=== PATIENT | male | born 1990 | race Caucasian/White ===

== ENCOUNTER → 2017-06-11 | Outpatient (CLI) | payer OTHER ==
[~2017-06-11] MED LIST: IMD2X PO; ONDA4TAB65 PO; PANT40TA PO; RANI150T3 PO
--- NOTE | 2017-06-11 11:27 | DIAGNOSTIC IMAGING REPORT ---
ABD/PELVIS NO IV OR ORAL CONT CT DOSE: 753.23 mGy.cm HISTORY: Flank pain. Hematuria. R30.0 Dysuria TECHNIQUE: Multiaxial CT images of the abdomen and pelvis were performed without contrast. A dose lowering technique was utilized adhering to the principles of ALARA. COMPARISON STUDY: None. FINDINGS: Liver spleen and pancreas are uniform in appearance. Kidneys negative for calcification or hydronephrosis. The adrenal glands are normal. The bowel pattern is nonobstructive. The appendix is normal. Scattered colonic diverticuli with no evidence for diverticulitis. Bladder is midline. No definite calcifications are seen. No significant abdominal pelvic or inguinal adenopathy. IMPRESSION: No significant abnormality identified within the abdomen or pelvis. The above report was generated using voice recognition software. It may contain grammatical, syntax or spelling errors. Electronically signed by: Minor Renee M.D. 06/11/2017 11:26 AM Dictated Date/Time: 06/11/2017 11:23 AM
[2017-06-11 13:12] LABS: MEAN CELL VOLUME 83.3 fL (80-100); MEAN CORPUSCULAR HEMOGLOBIN 27.9 pg (25-34); MEAN CORPUSCULAR HGB CONC 33.5 g/dl (32-36); MEAN PLATELET VOLUME 10.4 fL (7.4-10.4); PLATELET COUNT 255 K/uL (130-400); RED BLOOD COUNT 5.52 M/uL (4.7-6.1); WHITE BLOOD COUNT 7.28 K/uL (4.8-10.8)
[2017-06-11 13:17] LABS: ESTIMATED AVERAGE GLUCOSE 108 mg/dl; HA1C FLAG Normal (Normal)
[2017-06-11 14:14] LABS: ALT/SGPT 32 U/L (12-78); BLOOD UREA NITROGEN 13 mg/dl (7-18); BUN/CREATININE RATIO 12.8 (10-20); CALCIUM 9.3 mg/dl (8.5-10.1); CARBON DIOXIDE 28 mmol/L (21-32); CHLORIDE 100 mmol/L (98-107); CHOLESTEROL 169 mg/dl (0-200); GLUCOSE 92 mg/dl (70-99); POTASSIUM 3.9 mmol/L (3.5-5.1); SODIUM 137 mmol/L (136-145); TRIGLYCERIDES 292 mg/dl (0-150); VERY LOW DENSITY LIPOPROT CALC 58 mg/dl
[2017-06-11 14:17] LABS: ALB/GLOB RATIO 0.9 (0.9-2); ALKALINE PHOSPHATASE 91 U/L (45-117); AST/SGOT 25 U/L (15-37); CHOLESTEROL/HDL RATIO 4.4; HDL CHOLESTEROL 38 mg/dl; LDL CHOLESTEROL CALCULATED 73 mg/dl
== END | disposition home or self-care (01) ==
LOC: C.CTS 11:08
PROVIDERS: ATTEND Nurse Practitioner Family
DX: Z00.00 Encounter for general adult medical examination without abnormal findings (principal); R30.0 Dysuria

== ENCOUNTER → 2017-06-11 | Outpatient (CLI) | payer OTHER | END | disposition home or self-care (01) | LOC: C.PATHSPEC 17:01 | PROVIDERS: ATTEND Nurse Practitioner Family | DX: R31.29 Other microscopic hematuria (principal) ==

== ENCOUNTER 2017-06-22 07:58 | Inpatient (IN) | payer OTHER ==
[~2017-06-22] VITALS: Ht 175.3 cm; Wt 97.5 kg
[2017-06-22] MEDS ORDERED: SODIUM CHLORIDE 0.9% 1000ML 1,000 ML IV STA (08:08)
[2017-06-22] MEDS ORDERED: SODIUM CHLORIDE 0.9% 1000ML 2,000 ML IV STA (08:08)
[2017-06-22] MEDS ORDERED: OPTIRAY 320 IV PRN (08:30)
[2017-06-22 08:53] LABS: BASO ABS # 0.08 K/uL (0-0.2); COMPLETE YES; EOS % 5.6 %; HEMATOCRIT 47.5 % (42-52); IG% 1.5 %; LYMPH % 17.4 %; LYMPH ABS # 1.38 K/uL (1.2-3.4); MEAN CELL VOLUME 79.4 fL (80-100); MEAN CORPUSCULAR HEMOGLOBIN 29.1 pg (25-34); MEAN CORPUSCULAR HGB CONC 36.6 g/dl (32-36); MEAN PLATELET VOLUME 9.9 fL (7.4-10.4); MONO % 17.8 %; NEUT % 56.7 %; PLATELET COUNT 375 K/uL (130-400); RED BLOOD COUNT 5.98 M/uL (4.7-6.1); WHITE BLOOD COUNT 7.91 K/uL (4.8-10.8)
[2017-06-22 09:11] LABS: BUN/CREATININE RATIO 14.2 (10-20); CALCIUM 9.2 mg/dl (8.5-10.1); CREATININE 1.8 mg/dl (0.60-1.40); POTASSIUM 3.1 mmol/L (3.5-5.1)
[2017-06-22 09:14] LABS: ALB/GLOB RATIO 0.8 (0.9-2)
[2017-06-22] MEDS ORDERED: POTASSIUM CHLR 20 MEQ / WTR 20 MEQ in PREMIXED WATER 100 ML IV STA (09:20)
[2017-06-22] MEDS ORDERED: POTASSIUM CHLORIDE 10 MEQ / 100ML WTR IV ONE (09:32)
[2017-06-22 09:37] LABS: URINE APPEARANCE CLOUDY (CLEAR); URINE COLOR ORANGE; URINE EPITHELIAL CELL AUTO >30 /lpf (0-5); URINE NITRITE POS (NEG); URINE SPECIFIC GRAVITY 1.036 (1.000-1.030); UROBILINOGEN NEG (NEG)
[2017-06-22 09:49] LABS: MANUAL MICROSCOPIC REQUIRED? NO; REVIEW REQ? YES; SULFASALICYLIC ACID POS (NEG); URINE BILIRUBIN 3+ (NEG)
--- NOTE | 2017-06-22 10:33 | DIAGNOSTIC IMAGING REPORT ---
CT SCAN OF THE ABDOMEN AND PELVIS WITHOUT CONTRAST CLINICAL HISTORY: Abdominal pain, nausea, vomiting, diarrhea. COMPARISON STUDY: 06/11/2017 TECHNIQUE: CT scan of the abdomen and pelvis was performed from the lung bases to the proximal femurs. Images are reviewed in the axial, sagittal, and coronal planes. IV contrast was not administered for this examination. A dose lowering technique was utilized adhering to the principles of ALARA. CT DOSE: 936.77 mGycm FINDINGS: Lower chest: The heart is normal in size and configuration, without pericardial effusion. The lung bases and pleural spaces are clear. Liver: The unenhanced liver is normal in size, contour, and attenuation. There is no intrahepatic biliary ductal dilatation. Gallbladder: Slightly hyperdense bile. No calculi are visualized Spleen: Normal in size and attenuation. Pancreas: Unremarkable. Adrenal glands: Unremarkable. Kidneys: No renal, ureteral, or bladder calculi are visualized. Bowel: There are no transition zones indicate bowel obstruction. There is no acute diverticulitis. The appendix appears normal. Peritoneum: There is no intraperitoneal free air or abdominal ascites. Vasculature: The abdominal aorta is normal in course and caliber. There is minimal infiltration of the fat adjacent the celiac origin. This finding is of questioned significance and remains similar to the prior study Adenopathy: There are mildly enlarged mesenteric lymph nodes, likely reactive. Pelvic viscera: The bladder, and pelvic viscera are unremarkable. Skeletal structures: No destructive osseous lesions are seen. IMPRESSION: 1. No renal, ureteral, or bladder calculi identified 2. No evidence of bowel obstruction. No evidence of free air 3. Normal appendix. No evidence of acute diverticulitis 4. Mild mesenteric lymphadenopathy, likely reactive. A 6 month follow-up study would seem prudent 5. Subtle nonspecific infiltration of the fat adjacent to the celiac origin. Electronically signed by: Carlos Martínez M.D. 06/22/2017 10:32 AM Dictated Date/Time: 06/22/2017 10:26 AM
--- NOTE | 2017-06-22 11:12 | EMERGENCY ROOM VISIT NOTE ---
History First contact with patient: 08:03 Chief Complaint: ABDOMINAL PAIN Stated Complaint: FLU LIKE SYMPTOMS,EXTREME STOMACH PAIN Nursing Triage Summary: N/v/d with abd pain, states started last Thursday, pain has been off and on. Seen at [facility] - told it was food poisoning. History of Present Illness Patient is a healthy 26-year-old white male who presents emergency department for evaluation of nausea, vomiting and diarrhea times almost 10 days. He states that his symptoms started after he ate at a fast food restaurant on . He developed nausea, with multiple episodes of vomiting and diarrhea. He was seen at [facility] on 06/14. He received IV fluids and nausea medications. There was no imaging performed. He was prescribed Cipro, which he only took for about 3 days then stopped. He states that midweek he felt like he was getting a little bit better, then these symptoms rebounded. He has been forcing fluids, but reports mid abdominal pain, particularly after he tries to eat. He vomits after eating, and has had liquid diarrhea. He reports roughly 9-10 bowel movements per day. He reports feeling hot and sweaty, but has not had a fever. He tried taking Imodium without relief. Notes 4/10 crampy , intermittent mid abdominal pain. His 7-month-old daughter was also sick with similar symptoms, but she is improved. He denies any prior history of stomach problems or GI issues. He works on a farm. He has not traveled outside the country recently. Review of Systems Review of systems as per HPI. All other systems reviewed were negative. 10 systems reviewed. Past Medical/Surgical History Medical Problems: (1) ROXANNE (acute kidney injury) (2) Hematuria (3) Hypokalemia (4) Proteinuria Electronic medical records are reviewed and summarized as above/below. See Problem List. Social History Smoking Status: Former Smoker Marital Status: Housing Status: lives with family Occupation Status: employed Current/Historical Medications No Active Prescriptions or Reported Meds Physical Exam Vital Signs Date Time Temp Pulse Resp B/P (MAP) Pulse Ox O2 Delivery O2 Flow Rate FiO2 06/22/17 11:48 77 20 121/70 99 Room Air 06/22/17 11:28 99 Room Air 06/22/17 09:55 82 20 110/66 98 Room Air 06/22/17 07:59 36.4 92 16 117/85 95 Room Air Physical Exam CONSTITUTIONAL: Patient is an ill although nontoxic appearing 26-year-old white male who is awake and alert and in mild distress due to his stated complaint. EYES: Pupils equal, round, reactive to light and accommodation. EOMs intact without nystagmus. Sclera are anicteric. ENT: Tympanic membranes intact, with normal landmarks. External canals are clear. Oral and nasopharynx are clear. Mucous membranes are dry, no lesions, tongue and gums appear normal. NECK: No bruits auscultated. Supple without lymphadenopathy. No thyromegaly. No meningeal signs. Full active range of motion without discomfort. CARDIOVASCULAR: Regular rate and rhythm, with normal S1 and S2, no murmur or gallop or rub is heard. No carotid bruits auscultated. No JVD. Peripheral pulses easily palpable. RESPIRATORY: Breath sounds equal and clear to auscultation without wheezes, rales, or rhonchi heard. Full and equal chest expansion without accessory muscle use or retractions. ABDOMEN: Bowel sounds are present. Abdomen is soft, nondistended, mildly tender to palpation in the epigastric and the left upper quadrant without guarding, rebound or rigidity. INTEGUMENTARY: No lesions or rash, normal skin turgor. LYMPH: No lymphadenopathy. Medical Decision & Procedures ER Provider Diagnostic Interpretation: CT SCAN OF THE ABDOMEN AND PELVIS WITHOUT CONTRAST CLINICAL HISTORY: Abdominal pain, nausea, vomiting, diarrhea. COMPARISON STUDY: 06/11/2017 TECHNIQUE: CT scan of the abdomen and pelvis was performed from the lung bases to the proximal femurs. Images are reviewed in the axial, sagittal, and coronal planes. IV contrast was not administered for this examination. A dose lowering technique was utilized adhering to the principles of ALARA. CT DOSE: 936.77 mGycm FINDINGS: Lower chest: The heart is normal in size and configuration, without pericardial effusion. The lung bases and pleural spaces are clear. Liver: The unenhanced liver is normal in size, contour, and attenuation. There is no intrahepatic biliary ductal dilatation. Gallbladder: Slightly hyperdense bile. No calculi are visualized Spleen: Normal in size and attenuation. Pancreas: Unremarkable. Adrenal glands: Unremarkable. Kidneys: No renal, ureteral, or bladder calculi are visualized. Bowel: There are no transition zones indicate bowel obstruction. There is no acute diverticulitis. The appendix appears normal. Peritoneum: There is no intraperitoneal free air or abdominal ascites. Vasculature: The abdominal aorta is normal in course and caliber. There is minimal infiltration of the fat adjacent the celiac origin. This finding is of questioned significance and remains similar to the prior study Adenopathy: There are mildly enlarged mesenteric lymph nodes, likely reactive. Pelvic viscera: The bladder, and pelvic viscera are unremarkable. Skeletal structures: No destructive osseous lesions are seen. IMPRESSION: 1. No renal, ureteral, or bladder calculi identified 2. No evidence of bowel obstruction. No evidence of free air 3. Normal appendix. No evidence of acute diverticulitis 4. Mild mesenteric lymphadenopathy, likely reactive. A 6 month follow-up study would seem prudent 5. Subtle nonspecific infiltration of the fat adjacent to the celiac origin. Laboratory Results 06/22/17 08:30 Red Blood Count 5.98, Mean Corpuscular Volume 79.4, Mean Corpuscular Hemoglobin 29.1, Mean Corpuscular Hemoglobin Concent 36.6, Mean Platelet Volume 9.9, Neutrophils (%) (Auto) 56.7, Lymphocytes (%) (Auto) 17.4, Monocytes (%) (Auto) 17.8, Eosinophils (%) (Auto) 5.6, Basophils (%) (Auto) 1.0, Neutrophils # (Auto ) 4.48, Lymphocytes # (Auto) 1.38, Monocytes # (Auto) 1.41, Eosinophils # (Auto ) 0.44, Basophils # (Auto) 0.08 06/22/17 08:30 Test 06/22/17 08:30 06/22/17 08:44 06/22/17 12:20 White Blood Count 7.91 K/uL (4.8-10.8) Red Blood Count 5.98 M/uL (4.7-6.1) Hemoglobin 17.4 g/dL (14.0-18.0) Hematocrit 47.5 % (42-52) Mean Corpuscular Volume 79.4 fL (80-100) Mean Corpuscular Hemoglobin 29.1 pg (25-34) Mean Corpuscular Hemoglobin Concent 36.6 g/dl (32-36) Platelet Count 375 K/uL (130-400) Mean Platelet Volume 9.9 fL (7.4-10.4) Neutrophils (%) (Auto) 56.7 % Lymphocytes (%) (Auto) 17.4 % Monocytes (%) (Auto) 17.8 % Eosinophils (%) (Auto) 5.6 % Basophils (%) (Auto) 1.0 % Neutrophils # (Auto) 4.48 K/uL (1.4-6.5) Lymphocytes # (Auto) 1.38 K/uL (1.2-3.4) Monocytes # (Auto) 1.41 K/uL (0.11-0.59) Eosinophils # (Auto) 0.44 K/uL (0-0.5) Basophils # (Auto) 0.08 K/uL (0-0.2) RDW Standard Deviation 38.2 fL (36.4-46.3) RDW Coefficient of Variation 13.3 % (11.5-14.5) Immature Granulocyte % (Auto) 1.5 % Immature Granulocyte # (Auto) 0.12 K/uL (0.00-0.02) Prothrombin Time 12.0 SECONDS (9.0-12.0) Prothromb Time International Ratio 1.1 (0.9-1.1) Activated Partial Thromboplast Time 28.9 SECONDS (21.0-31.0) Partial Thromboplastin Ratio 1.1 Anion Gap 9.0 mmol/L (3-11) Est Creatinine Clear Calc Drug Dose 71.0 ml/min Estimated GFR () 58.9 Estimated GFR (Non- 50.8 BUN/Creatinine Ratio 14.2 (10-20) Calcium Level 9.2 mg/dl (8.5-10.1) Magnesium Level 2.2 mg/dl (1.8-2.4) Total Bilirubin 3.7 mg/dl (0.2-1) Direct Bilirubin 2.4 mg/dl (0-0.2) Aspartate Amino Transf (AST/SGOT) 244 U/L (15-37) Alanine Aminotransferase (ALT/SGPT) 260 U/L (12-78) Alkaline Phosphatase 132 U/L (45-117) Total Creatine Kinase 279 U/L (39-308) Total Protein 7.9 gm/dl (6.4-8.2) Albumin 3.6 gm/dl (3.4-5.0) Globulin 4.3 gm/dl (2.5-4.0) Albumin/Globulin Ratio 0.8 (0.9-2) Amylase Level 103 U/L (25-115) Lipase 742 U/L (73-393) Hepatitis B Surface Antigen NEG (NEG) Hepatitis C Antibody NEG (NEG) Urine Color ORANGE Urine Appearance CLOUDY (CLEAR) Urine pH 6.0 (4.5-7.5) Urine Specific [place] 1.036 (1.000-1.030) Urine Protein 4+ (NEG) Urine Glucose (UA) NEG (NEG) Urine Ketones NEG (NEG) Urine Occult Blood 3+ (NEG) Urine Nitrite POS (NEG) Urine Bilirubin 3+ (NEG) Urine Urobilinogen NEG (NEG) Urine Leukocyte Esterase SMALL (NEG) Urine WBC (Auto) 10-30 /hpf (0-5) Urine RBC (Auto) >30 /hpf (0-4) Urine Hyaline Casts (Auto) >30 /lpf (0-5) Urine Epithelial Cells (Auto) >30 /lpf (0-5) Urine Bacteria (Auto) 1+ (NEG) Urine Renal Epithelial Cells /lpf (0-5) Urine Pathogenic Casts See comments /lpf (0) Medications Administered Medications (Trade) Dose Ordered Sig/Smooth Route Start Time Stop Time Status Last Admin Dose Admin Sodium Chloride 1,000 ml @ 250 mls/hr Q4H STAT IV 06/22/17 08:08 06/22/17 12:07 DC 06/22/17 10:24 250 MLS/HR Sodium Chloride 2,000 ml @ 999 mls/hr Q2H1M STAT IV 06/22/17 08:08 06/22/17 10:08 DC 06/22/17 08:49 999 MLS/HR Potassium Chloride (Kcl 10 Meq / Wtr) 20 meq STK-MED ONCE IV 06/22/17 09:32 06/22/17 09:33 DC 06/22/17 10:24 20 MEQ ED Course Patient was seen and evaluated as above. His old records were reviewed. IV lock was initiated and he was hydrated aggressively with normal saline solution. He declined medication for pain or nausea while in the emergency department. CBC with differential, CMP, lipase and urinalysis were ordered. Laboratory studies noted a normal white count of 7900, H&H 17.4 and 47.5, chemistries is noted a sodium of 132, potassium 3.1, chloride 98, carbon dioxide 25, BUN 26 and creatinine 1.8. He has elevation of his total bilirubin and transaminases. Lipase is also slightly elevated. The patient was reassessed and made aware of the results of his laboratory and diagnostic imaging studies. Hepatitis panel was ordered. The patient was able to provide a stool sample which was sent for analysis. CT scan of the abdomen and pelvis without contrast was ordered, and was largely unremarkable. There is no evidence for urinary calculi, no bowel obstruction free air or acute diverticulitis. Appendix was visualized and was normal. Patient was given potassium 20 mEq IV. The patient was able to give a stool sample which was negative for C. difficile. Stool cultures are pending. All laboratory and diagnostic imaging studies were reviewed with attending physician , and discussed with the patient and his family at length. Given his transaminitis, and acute kidney injury in the setting of a vomiting and diarrheal illness for 10 days, it was felt that he would benefit from admission/ observation for further care and management. The wound and the hospitalist service was contacted, and the patient was discussed with Dr. Huizar. Differential diagnoses entertained included infectious versus inflammatory colitis/enteritis, food borne illness, bowel obstruction, perforation, abscess, dehydration, ROXANNE, electrolyte or metabolic abnormality, among others. Medical Decision See emergency Department course Medication Reconcilliation Current Medication List: was personally reviewed by in Blood Pressure Screening Patient's blood pressure: Normal blood pressure Blood pressure disposition: Did not require urgent referral Impression Primary Impression: Transaminitis Additional Impressions: Elevated bilirubin Nausea vomiting and diarrhea ROXANNE (acute kidney injury) Departure Information Dispostion Being Evaluated By Hospitalist Prescriptions No Active Prescriptions or Reported Meds Referrals Nita Santillan M.D. (PCP) Patient Instructions My [facility] Problem Qualifiers
[2017-06-22 11:28] VITALS: O2SAT 99; Ht 175.3 cm; Wt 97.5 kg
--- NOTE | 2017-06-22 12:01 | History and Physical ---
History & Physical Date & Time of Service: Jun 22, 2017 at 11:46 Chief Complaint: Flu Like Symptoms,Extreme Stomach Pain Primary Care Physician: Nita Santillan M.D. History of Present Illness Source: patient 26yo male with no significant PMH who presents with GI illness starting about 10 days ago. He states he ate at an [employer] restaurant in [place] and within hours of eating there he felt ill. Had stomach pain, bloating, and by the next morning had emesis. Diarrhea started that Thursday. He had 10-20 episodes of diarrhea each day initially, and now he is down to about 8-12 times/day. He had fevers for the first 4-5 days - subjective; never had it checked. Had chills as well. Appetite and liquid intake has been very poor for the last week. Stool is pure liquid. No blood. ?mucous. His 7mo daughter was hospitalized for 2 days at [facility] for similar symptoms. reports they were told it was a virus that caused the diarrhea and she improved without use of a course of antibiotics. They did NOT check stool cultures or do other stool testing. No recent travel. 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 He was seen at [facility] ER last week and was discharged home about 9 days ago. He was given supportive care and sent home. He took immodium and tums last week prn. He took cipro for 3 days (prescribed by [facility]). Past Medical/Surgical History PMH: no heart, kidney, lung problems no T2DM PSH: left forearm - fracture (plate) sinus surgery Family History father - GERD MGM - ESRD on HD prior to her no family history otherwise of early onset kidney failure/kidney disease Social History Smoking Status: Former Smoker (quit - 5 years ago; smoked for a few years only) Alcohol Use: none Drug Use: none Marital Status: (7mo daughter) Housing status: lives with family (in [place]) Occupational Status: employed (works on a farm ) Allergies Coded Allergies: No Known Allergies (Unverified , 06/22/17) Home Medications No Active Prescriptions or Reported Meds Review of Systems Constitutional: + fever, + chills, + weight loss (15 pounds), + weakness, + fatigue Eyes: No worsening of vision ENT: No nasal symptoms, No sore throat Respiratory: No cough, No sputum, No wheezing, No dyspnea on exertion, No dyspnea at rest Cardiovascular: No chest pain Abdomen: + pain, + nausea, + vomiting, + diarrhea, No constipation, No GI bleeding Musculoskeletal: No joint pain Genitourinary - Male: + hematuria, No dysuria, No urinary frequency, No penile discharge Neurologic: No numbness/tingling Psychiatric: No depression symptoms Endocrine: + fatigue, + excessive thirst Hematologic / Lymphatic: No abnormal bleeding/bruising Integumentary: No rash Physical Exam Vital Signs Date Time Temp Pulse Resp B/P (MAP) Pulse Ox O2 Delivery O2 Flow Rate FiO2 06/22/17 09:55 82 20 110/66 98 Room Air 06/22/17 07:59 36.4 92 16 117/85 95 Room Air General Appearance: no apparent distress, + obese Head: normocephalic, atraumatic Eyes: PERRL ENT: TMs normal, pharynx normal (except MM dry) Neck: supple, no adenopathy, thyroid normal, no JVD Respiratory/Chest: lungs clear, no respiratory distress, no accessory muscle use Cardiovascular: regular rate, rhythm, no gallop, no murmur, normal peripheral pulses Abdomen/GI: normal bowel sounds, soft, no organomegaly, + tenderness ( epigastric area with deep palpation) Back: normal inspection, no muscle spasm Extremities/Musculoskelatal: no pedal edema, + pertinent finding (slightly cool extremities) Neurologic/Psych: no motor/sensory deficits, alert, normal mood/affect, normal reflexes, oriented x 3 Skin: no rash Lymphatic: no adenopathy (cervical ) Diagnostics Laboratory Results Results Past 24 Hours Test 06/22/17 08:30 06/22/17 08:44 Range/Units White Blood Count 7.91 4.8-10.8 K/uL Red Blood Count 5.98 4.7-6.1 M/uL Hemoglobin 17.4 14.0-18.0 g/dL Hematocrit 47.5 42-52 % Mean Corpuscular Volume 79.4 80-100 fL Mean Corpuscular Hemoglobin 29.1 25-34 pg Mean Corpuscular Hemoglobin Concent 36.6 32-36 g/dl Platelet Count 375 130-400 K/uL Mean Platelet Volume 9.9 7.4-10.4 fL Neutrophils (%) (Auto) 56.7 % Lymphocytes (%) (Auto) 17.4 % Monocytes (%) (Auto) 17.8 % Eosinophils (%) (Auto) 5.6 % Basophils (%) (Auto) 1.0 % Neutrophils # (Auto) 4.48 1.4-6.5 K/uL Lymphocytes # (Auto) 1.38 1.2-3.4 K/uL Monocytes # (Auto) 1.41 0.11-0.59 K/uL Eosinophils # (Auto) 0.44 0-0.5 K/uL Basophils # (Auto) 0.08 0-0.2 K/uL RDW Standard Deviation 38.2 36.4-46.3 fL RDW Coefficient of Variation 13.3 11.5-14.5 % Immature Granulocyte % (Auto) 1.5 % Immature Granulocyte # (Auto) 0.12 0.00-0.02 K/uL Sodium Level 132 136-145 mmol/L Potassium Level 3.1 3.5-5.1 mmol/L Chloride Level 98 98-107 mmol/L Carbon Dioxide Level 25 21-32 mmol/L Anion Gap 9.0 3-11 mmol/L Blood Urea Nitrogen 26 7-18 mg/dl Creatinine 1.80 0.60-1.40 mg/dl Est Creatinine Clear Calc Drug Dose 71.0 ml/min Estimated GFR () 58.9 Estimated GFR (Non- 50.8 BUN/Creatinine Ratio 14.2 10-20 Random Glucose 107 70-99 mg/dl Calcium Level 9.2 8.5-10.1 mg/dl Total Bilirubin 3.7 0.2-1 mg/dl Aspartate Amino Transf (AST/SGOT) 244 15-37 U/L Alanine Aminotransferase (ALT/SGPT) 260 12-78 U/L Alkaline Phosphatase 132 45-117 U/L Total Protein 7.9 6.4-8.2 gm/dl Albumin 3.6 3.4-5.0 gm/dl Globulin 4.3 2.5-4.0 gm/dl Albumin/Globulin Ratio 0.8 0.9-2 Lipase 742 73-393 U/L Hepatitis B Surface Antigen NEG NEG Hepatitis C Antibody NEG NEG Urine Color ORANGE Urine Appearance CLOUDY CLEAR Urine pH 6.0 4.5-7.5 Urine Specific [place] 1.036 1.000-1.030 Urine Protein 4+ NEG Urine Glucose (UA) NEG NEG Urine Ketones NEG NEG Urine Occult Blood 3+ NEG Urine Nitrite POS NEG Urine Bilirubin 3+ NEG Urine Urobilinogen NEG NEG Urine Leukocyte Esterase SMALL NEG Urine WBC (Auto) 10-30 0-5 /hpf Urine RBC (Auto) >30 0-4 /hpf Urine Hyaline Casts (Auto) >30 0-5 /lpf Urine Epithelial Cells (Auto) >30 0-5 /lpf Urine Bacteria (Auto) 1+ NEG Urine Renal Epithelial Cells 0-5 /lpf Urine Pathogenic Casts See comments 0 /lpf Microbiology Results 06/22/17 C.difficile Toxin B Gene (PCR) - Final, Complete No C. difficile toxin B gene detected 06/22/17 Shiga Toxin Test, Received Pending 06/22/17 Stool Culture, Received Pending Diagnostic Radiology CT abd/pelvis: IMPRESSION: 1. No renal, ureteral, or bladder calculi identified 2. No evidence of bowel obstruction. No evidence of free air 3. Normal appendix. No evidence of acute diverticulitis 4. Mild mesenteric lymphadenopathy, likely reactive. A 6 month follow-up study would seem prudent 5. Subtle nonspecific infiltration of the fat adjacent to the celiac origin. Impression Assessment and Plan 26yo male with no significant PMH presenting with presumed infectious enteritis x 10 days, abnormal LFTs, acute kidney failure, and significant proteinuria/ hematuria. He also had been having intermittent gross hematuria earlier in May. 1. presumed infectious enteritis - c. diff is negative. Stool culture sent. Check giardia Ag, rotavirus Ag, and stool for O/P. Defer on antibiotics. No evidence of HUS based on his preserved H/H and platelet count. GI consultation requested for additional recommendations. I am unsure of the connection between his enteritis and his abnormal LFTs. Clear liquid diet, IVF, and supportive care. He has mild epigastric pain - presumably from gastritis - place on IV H2 darrin. 2. abnormal LFTs - check RUQ u/s, r/o biliary tract disease. Check direct bilirubin. Await acute infectious hepatitis serologies. Repeat LFTs in am. There is no history of etoh abuse or tylenol overuse. Coags, platelets, and albumin are preserved. Reactive to #1? Consider CMV, EBV, etc but defer that decision to GI. 3. acute renal failure - the multiple casts seen on microscopy is c/w ATN, likely due to his severe dehydration from #1. I cannot rule out glomerulonephritis given the significant proteinuria and hematuria on u/a. nephrology consultation requested. Check urine Na, urine Cr, urine protein/creatinine ratio, complements, etc. No evidence of obstruction on 2 CAT scans of abd/pelvis. Strict I's and O's. Repeat BMP at 1800 tonight and again in AM. 4. hyponatremia - likely due to volume depletion. He appears volume contracted on exam. hydrate, repeat BMP later tonight. 5. hypokalemia - 2nd to diarrhea. Received IV/PO K in er. Repeat K later tonight. Check mag now. 6. DVT proph - heparin TID. 7. FEN - clear liquids for now; IVF with NS with KCL; CMP in am. 8. hematuria/proteinuria - see above. 9. elevated lipase - no evidence of pancreatitis clinically. Check amylase. Suspect due to ARF or his dehydration. Repeat am. Advanced Directives Existing Advance Directive: No Existing Living Will: No Existing Power of Pharmacist Aide: No Resuscitation Status FULL RESUSCITATION VTE Prophylaxis VTE Risk Assessment Done? Y/N: Yes Risk Level: Moderate Given or contraindicated: Unfractionated heparin SQ Social Service Consult None Apply Note total time about 70 minutes including speaking to GI/nephrology Additional Copies To Nita Santillan M.D.
[2017-06-22] MEDS ORDERED: ONDANSETRON INJ 2 MG/ML 2 ML VIAL IV PRN (12:30)
[2017-06-22] MEDS ORDERED: ALUMINUM/MAGNESIUM/SIMETH (MAALOX MAX) 30 ML UDC PO PRN (12:30)
[2017-06-22] MEDS ORDERED: MoRPHine SULFATE 2 MG/ML CARP IV PRN (12:30)
[2017-06-22 13:20] LABS: INR 1.1 (0.9-1.1); PARTIAL THROMBOPLASTIN RATIO 1.1
--- NOTE | 2017-06-22 13:48 | DIAGNOSTIC IMAGING REPORT ---
ABDOMINAL ULTRASOUND, RIGHT UPPER QUADRANT HISTORY: Abnormal liver function tests. Abdominal pain. COMPARISON: CT of the abdomen and pelvis performed earlier today. FINDINGS: Liver morphology is normal. No hepatic lesions are identified. Hepatic echogenicity is slightly increased. There is no biliary ductal dilatation. The common bile duct measures 5 mm in caliber. No gallstones are identified. There is no gallbladder wall thickening. The pancreatic body is normal. The head and tail are partially obscured. There is no right hydronephrosis. IMPRESSION: 1. No gallstones or biliary ductal dilatation. 2. Possible fatty infiltration of the liver. Electronically signed by: Edgar Reed M.D. 06/22/2017 1:46 PM Dictated Date/Time: 06/22/2017 1:44 PM
[2017-06-22 14:04] VITALS: O2SAT 99
--- NOTE | 2017-06-22 14:08 | Gastrointestinal Consultation ---
Gastrointestinal Consultation Date of Consultation: Jun 22, 2017 Attending Physician: Gaye Consulting Physician: Chuyita Reason for Consultation: diarrhea, transaminitis History of Present Illness Patient is a 26 year old male w/o any pertinent past medical history who presents to the ED for evaluation of abdominal pain and diarrhea. Pt was seen and evaluated w/ Dr. Boogie in the ED. Pt reports after eating fast food last week, he has had abdominal pain and diarrhea ever since. He was seen in [place] ED who did not complete any stool samples and sent him home with a 3 day course of cipro for suspected food poising. He was also having nausea and vomiting. Mr. Inman symptoms persisted. Moves his bowels 6-10 times daily, all loose stools, no form. No black or bloody stools. His abdominal pain is mildly relieved after a BM. It is a cramping pain. He also has upper abdominal pain. Worse with PO intake. Does not typically have upper abdominal typically. Has had intermittent fever and chills. He tells me his daughter was hospitalized last week with similar symptoms - he is not sure if any stool samples were obtained. Drinks well water. Works on a farm. GB US 06/22/17: No gallstones or biliary ductal dilatation. Possible fatty infiltration of the liver. CT abd 06/22/17: No renal, ureteral, or bladder calculi identified No evidence of bowel obstruction. No evidence of free air Normal appendix. No evidence of acute diverticulitis Mild mesenteric lymphadenopathy, likely reactive. A 6 month follow-up study would seem prudent Subtle nonspecific infiltration of the fat adjacent to the celiac origin. Past Medical/Surgical History Medical Problems: (1) Elevated bilirubin Status: Acute (2) Nausea vomiting and diarrhea Status: Acute (3) Transaminitis Status: Acute Past Medical History: none Past Surgical History: sinus surgery Social History Smoking Status: Former Smoker (quit - 5 years ago; smoked for a few years only) Drug Use: none Marital Status: (7mo daughter) Housing Status: lives with family Occupation Status: employed (works on a farm ) Allergies Coded Allergies: No Known Allergies (Unverified , 06/22/17) Current Medications Home Meds and Scripts Medications Dose Route/Sig Max Daily Dose Days Date Category No Active Prescriptions or Reported Medications Rx Review of Systems Constitutional: + chills Respiratory: No cough, No shortness of breath Cardiac: No chest pain Abdomen: + pain, + nausea, + diarrhea Physical Exam Date Time Temp Pulse Resp B/P (MAP) Pulse Ox O2 Delivery O2 Flow Rate FiO2 06/22/17 11:48 77 20 121/70 99 Room Air 06/22/17 11:28 99 Room Air 06/22/17 09:55 82 20 110/66 98 Room Air 06/22/17 07:59 36.4 92 16 117/85 95 Room Air General Appearance: no apparent distress Eyes: PERRL ENT: hearing grossly normal Neck: supple Respiratory/Chest: lungs clear Cardiovascular: regular rate, rhythm Abdomen: normal bowel sounds, soft, no organomegaly, + tenderness Neurologic/Psych: alert, normal mood/affect, oriented x 3 Skin: normal color Laboratory Results Last 24 Hours Test 06/22/17 08:30 06/22/17 08:44 06/22/17 12:20 06/22/17 13:15 White Blood Count 7.91 K/uL Red Blood Count 5.98 M/uL Hemoglobin 17.4 g/dL Hematocrit 47.5 % Mean Corpuscular Volume 79.4 fL Mean Corpuscular Hemoglobin 29.1 pg Mean Corpuscular Hemoglobin Concent 36.6 g/dl Platelet Count 375 K/uL Mean Platelet Volume 9.9 fL Neutrophils (%) (Auto) 56.7 % Lymphocytes (%) (Auto) 17.4 % Monocytes (%) (Auto) 17.8 % Eosinophils (%) (Auto) 5.6 % Basophils (%) (Auto) 1.0 % Neutrophils # (Auto) 4.48 K/uL Lymphocytes # (Auto) 1.38 K/uL Monocytes # (Auto) 1.41 K/uL Eosinophils # (Auto) 0.44 K/uL Basophils # (Auto) 0.08 K/uL RDW Standard Deviation 38.2 fL RDW Coefficient of Variation 13.3 % Immature Granulocyte % (Auto) 1.5 % Immature Granulocyte # (Auto) 0.12 K/uL Prothrombin Time 12.0 SECONDS Prothromb Time International Ratio 1.1 Activated Partial Thromboplast Time 28.9 SECONDS Partial Thromboplastin Ratio 1.1 Sodium Level 132 mmol/L Potassium Level 3.1 mmol/L Chloride Level 98 mmol/L Carbon Dioxide Level 25 mmol/L Anion Gap 9.0 mmol/L Blood Urea Nitrogen 26 mg/dl Creatinine 1.80 mg/dl Est Creatinine Clear Calc Drug Dose 71.0 ml/min Estimated GFR () 58.9 Estimated GFR (Non- 50.8 BUN/Creatinine Ratio 14.2 Random Glucose 107 mg/dl Calcium Level 9.2 mg/dl Magnesium Level 2.2 mg/dl Total Bilirubin 3.7 mg/dl Direct Bilirubin 2.4 mg/dl Aspartate Amino Transf (AST/SGOT) 244 U/L Alanine Aminotransferase (ALT/SGPT) 260 U/L Alkaline Phosphatase 132 U/L Total Creatine Kinase 279 U/L Total Protein 7.9 gm/dl Albumin 3.6 gm/dl Globulin 4.3 gm/dl Albumin/Globulin Ratio 0.8 Amylase Level 103 U/L Lipase 742 U/L Hepatitis B Surface Antigen NEG Hepatitis C Antibody NEG Urine Color ORANGE Urine Appearance CLOUDY Urine pH 6.0 Urine Specific [place] 1.036 Urine Protein 4+ Urine Glucose (UA) NEG Urine Ketones NEG Urine Occult Blood 3+ Urine Nitrite POS Urine Bilirubin 3+ Urine Urobilinogen NEG Urine Leukocyte Esterase SMALL Urine WBC (Auto) 10-30 /hpf Urine RBC (Auto) >30 /hpf Urine Hyaline Casts (Auto) >30 /lpf Urine Epithelial Cells (Auto) >30 /lpf Urine Bacteria (Auto) 1+ Urine Renal Epithelial Cells /lpf Urine Pathogenic Casts See comments /lpf Impression Patient is a 26 year old male with a 1-2 week history of N/V/D with who was seen in [place] ED and sent home with a script of cipro without any resolution of his symptoms - Labs at ED with transaminitis with DB pending and ROXANNE. Plan - Stool culture - Stool c.diff - Stool O&P - CMP daily - PPI once daily - Clear liquid diet as tolerated - IVF hydration - antiemetics PRN - hold on antidiarrheal agents - Acute hepatitis panel - if negative and LFTs aren't trending down will need additional work up - ETOH and tylenol level Call with any questions. GI will follow ATTESTATION: I have performed a history and physical examination of this patient and reviewed the electronic record. Specifically, on physical examination there is mild abdominal tenderness without guarding or rebound. I have discussed the case with EMPERATRIZ Malloy. The above note reflects my findings, conclusions, and recommendations. Brown Boogie MD
[2017-06-22 14:21] VITALS: BP 118/78; PULSE 69; TEMP 36.5; O2SAT 98
[2017-06-22 15:30] LABS: C-REACTIVE PROTEIN 1.19 mg/dl (0-0.29); RHEUMATOID FACTOR < 10.0 U/mL (0-15)
[2017-06-22] MEDS: NSS + 20MEQ KCL 1000ML 1,000 ML IV SCH ×2 (15:30→21:42)
[2017-06-22] MEDS: RANITIDINE IV 50 MG in DEXTROSE 5% 100ML 100 ML IV SCH ×2 (15:30→23:17)
[2017-06-22] MEDS: HEPARIN SOD 5000 UNIT/0.5 ML CARP SQ SCH ×2 (15:35→21:43)
--- NOTE | 2017-06-22 16:16 | Nephrology Consultation ---
Nephrology Consultation Date & Providers Date of Consultation: Jun 22, 2017. Primary Care Provider: Nita Santillan M.D. Referring Provider: Reason for Consultation Evaluation and management for acute kidney injury, proteinuria hematuria. History of Present Illness Damian Is a 26-year-old gentlemen otherwise healthy with no significant PMH, no CKD admitted to the hospital with presumed gastroenteritis. Nephrologic consult was requested as patient was found to have acute kidney injury with hematuria and proteinuria. Electronic medical records including labs and imaging were reviewed in detail during patient's visit. Damian was otherwise well until almost 10 days ago when he started having diarrhea and vomiting after he ate outside. He went to ED in [facility] when he was diagnosed with gastroenteritis, given Cipro to be taken for 3 days which he started on and completed. initially his symptoms slightly improved after the antibiotic but again worsened and continued to have diarrhea at 10-20 times per day with occasional vomiting and presented to the ED for further evaluation. his diarrhea now slightly improved to around 6 to 10 times per day and vomiting seems to have stopped. Was evaluated by GI, currently stool studies including infectious etiology are pending. On admission his creatinine was 1.8 with prior history of normal renal function except another episode of ROXANNE recently. Urinalysis was positive for 4 + proteinuria, 3+ hematuria, pyuria and granular as well as WBC cast. CT abdomen pelvis showed otherwise normal size kidney without any hydronephrosis, nephrolithiasis. Blood pressure has been stable. He reports poor p.o. intake for last few days. Denies any NSAID use. Was not on any diuretics, BERNADETTE- inhibitor ARB. Completed 3 days course of ciprofloxacin on 06/16/17. He reports decreased UO over last few days and dark urine. Grandmother had chronic kidney disease and of renal failure. Dad has h/o nephrolithiasis. Denies any skin rash, arthralgia, fever or chills. Ex smoker, quit 5 years ago. No prior history of autoimmune disorder. LFTs are mildly elevated, had elevated lipase however right upper quadrant ultrasound was unremarkable except fatty liver and CT scan was showing otherwise normal pancreas. Allergies Coded Allergies: No Known Allergies (Unverified , 06/22/17) Inpatient Medications Current Inpatient Medications Medications (Trade) Dose Ordered Sig/Smooth Route Start Time Stop Time Status Last Admin Dose Admin Ioversol (Optiray 320) 100 ml UD PRN IV 06/22/17 08:30 06/26/17 08:29 Heparin Sodium (Porcine) (Heparin Sq 5000 Unit/0.5ml) 5,000 unit Q8H SQ 06/22/17 12:30 07/22/17 12:29 UNV Al Hydrox/Mg Hydrox/Simethicone (Maalox Max Susp) 15 ml Q4H PRN PO 06/22/17 12:30 07/22/17 12:29 UNV Ondansetron HCl (Zofran Inj) 4 mg Q6H PRN IV 06/22/17 12:30 07/22/17 12:29 UNV Potassium Chloride/Sodium Chloride 1,000 ml @ 150 mls/hr Q6H40M IV 06/22/17 12:30 07/22/17 12:29 UNV Morphine Sulfate (MoRPHine SULFATE INJ) 2 mg Q3H PRN IV 06/22/17 12:30 07/06/17 12:29 UNV Ranitidine HCl 50 mg/Dextrose 102 ml @ 200 mls/hr Q8H IV 06/22/17 12:45 07/22/17 12:44 UNV Family History Grandmother had chronic kidney disease and of renal failure. Dad has h/o nephrolithiasis. Social History Smoking Status: Former Smoker (quit - 5 years ago; smoked for a few years only) Alcohol Use: none Drug Use: none Marital Status: (7mo daughter) Housing Status: lives with family (in [place]) Occupation: employed (works on a farm ) Review of Systems A complete review of systems was performed. Pertinent positives are noted above. All other systems are negative. Physical Exam Date Time Temp Pulse Resp B/P (MAP) Pulse Ox O2 Delivery O2 Flow Rate FiO2 06/22/17 11:48 77 20 121/70 99 Room Air 06/22/17 11:28 99 Room Air 06/22/17 09:55 82 20 110/66 98 Room Air 06/22/17 07:59 36.4 92 16 117/85 95 Room Air GENERAL: Young male, AAA x 3, pleasant, healthy-appearing, not in any distress. HEENT: Atraumatic, normocephalic. NECK: Supple, no JVD, no carotid bruit appreciated. ENT: No sinus tenderness MOUTH and THROAT: Moist oral mucosa, no oral ulcer or pharyngeal erythema RESPIRATORY: Normal breathing efforts, no accessory muscle use, clear to auscultation bilaterally, no wheezes or rales. CARDIOVASCULAR: S1, S2 normal, rate rhythm regular. ABDOMEN: Soft, nontender, positive bowel sound. MUSCULOSKELETAL: No CVA tenderness. No joint swelling, erythema or tenderness. Normal range of motion. SKIN: No skin rash EXTREMITY: No lower extremity edema NEURO: No gross focal neurological deficit, speech fluent. PSYCHIATRY: Normal mood and judgment Laboratory Results Last 24 Hours Test 06/22/17 08:30 06/22/17 08:44 06/22/17 12:20 White Blood Count 7.91 K/uL Red Blood Count 5.98 M/uL Hemoglobin 17.4 g/dL Hematocrit 47.5 % Mean Corpuscular Volume 79.4 fL Mean Corpuscular Hemoglobin 29.1 pg Mean Corpuscular Hemoglobin Concent 36.6 g/dl Platelet Count 375 K/uL Mean Platelet Volume 9.9 fL Neutrophils (%) (Auto) 56.7 % Lymphocytes (%) (Auto) 17.4 % Monocytes (%) (Auto) 17.8 % Eosinophils (%) (Auto) 5.6 % Basophils (%) (Auto) 1.0 % Neutrophils # (Auto) 4.48 K/uL Lymphocytes # (Auto) 1.38 K/uL Monocytes # (Auto) 1.41 K/uL Eosinophils # (Auto) 0.44 K/uL Basophils # (Auto) 0.08 K/uL RDW Standard Deviation 38.2 fL RDW Coefficient of Variation 13.3 % Immature Granulocyte % (Auto) 1.5 % Immature Granulocyte # (Auto) 0.12 K/uL Sodium Level 132 mmol/L Potassium Level 3.1 mmol/L Chloride Level 98 mmol/L Carbon Dioxide Level 25 mmol/L Anion Gap 9.0 mmol/L Blood Urea Nitrogen 26 mg/dl Creatinine 1.80 mg/dl Est Creatinine Clear Calc Drug Dose 71.0 ml/min Estimated GFR () 58.9 Estimated GFR (Non- 50.8 BUN/Creatinine Ratio 14.2 Random Glucose 107 mg/dl Calcium Level 9.2 mg/dl Magnesium Level 2.2 mg/dl Total Bilirubin 3.7 mg/dl Direct Bilirubin 2.4 mg/dl Aspartate Amino Transf (AST/SGOT) 244 U/L Alanine Aminotransferase (ALT/SGPT) 260 U/L Alkaline Phosphatase 132 U/L Total Creatine Kinase 279 U/L Total Protein 7.9 gm/dl Albumin 3.6 gm/dl Globulin 4.3 gm/dl Albumin/Globulin Ratio 0.8 Amylase Level 103 U/L Lipase 742 U/L Hepatitis B Surface Antigen NEG Hepatitis C Antibody NEG Urine Color ORANGE Urine Appearance CLOUDY Urine pH 6.0 Urine Specific [place] 1.036 Urine Protein 4+ Urine Glucose (UA) NEG Urine Ketones NEG Urine Occult Blood 3+ Urine Nitrite POS Urine Bilirubin 3+ Urine Urobilinogen NEG Urine Leukocyte Esterase SMALL Urine WBC (Auto) 10-30 /hpf Urine RBC (Auto) >30 /hpf Urine Hyaline Casts (Auto) >30 /lpf Urine Epithelial Cells (Auto) >30 /lpf Urine Bacteria (Auto) 1+ Urine Renal Epithelial Cells /lpf Urine Pathogenic Casts See comments /lpf Impression (1) ROXANNE (acute kidney injury) (2) Hematuria (3) Proteinuria (4) Hypokalemia Damian is a 26-year-old gentlemen with acute kidney injury, hematuria, proteinuria in the setting of diarrheal illness for more than 10 days. No prior history of chronic kidney disease, hematuria proteinuria. Reports decreased UO for last few days with dark urine but he did urinate while in ED. CT scan unremarkable kidneys without obstruction nephrolithiasis. Otherwise has been very healthy with no prior history of chronic kidney disease, was not on any nephrotoxins medications. Received Cipro for 3 days, stopped on 06/17/17. No NSAID use. Urinalysis with significant pyuria, proteinuria, hematuria as well as granular and WBC cast. Acute kidney injury could be secondary to ATN versus prerenal etiology with diarrheal illness for 10 days with poor p.o. intake. However with active urine sediment specially WBC cast in the setting of high grade proteinuria and hematuria raises concern for intrinsic renal etiology such as acute interstitial nephritis or glomerular pathology. Recommendations --Continue supportive care with IV hydration and encourage p.o. intake as tolerated. --Continue to monitor renal function closely. --Considering active urine sediment, acute kidney injury and proteinuria, hematuria will order serological workup --avoid nephrotoxins medications --Will check 24 hour urine for better assessment of proteinuria Thank you for allowing me to participate in your patient's care. It was a pleasure to see Dmaian. This chart was completed utilizing [employer] Speech and voice recognition software. Grammatical errors, random word insertions, pronoun errors and incomplete sentences are occasional consequences of this system. Any questions or concerns about the content, text or information contained within the body of this dictation should be addressed directly to the physician for clarification.
[2017-06-22 18:21] LABS: BUN/CREATININE RATIO 13.4 (10-20); CALCIUM 8.1 mg/dl (8.5-10.1); CREATININE 1.3 mg/dl (0.60-1.40)
[2017-06-22 18:25] LABS: URINE PROTIEN/CREAT RATIO 0.9 (0-0.2)
[2017-06-23] VITALS: BP 124/80; PULSE 66; TEMP 36.4; O2SAT 100
[2017-06-23] MEDS: NSS + 20MEQ KCL 1000ML 1,000 ML IV SCH ×3 (04:39→17:26)
[2017-06-23] MEDS: HEPARIN SOD 5000 UNIT/0.5 ML CARP SQ SCH ×3 (06:14→22:25)
[2017-06-23] MEDS: RANITIDINE IV 50 MG in DEXTROSE 5% 100ML 100 ML IV SCH ×3 (06:17→22:24)
[2017-06-23 07:39] VITALS: BP 104/69; PULSE 71; TEMP 36.5; O2SAT 99
[2017-06-23 08:34] LABS: BASO % 2.3 %; BASO ABS # 0.13 K/uL (0-0.2); COMPLETE YES; EOS % 7.1 %; HEMATOCRIT 47.8 % (42-52); IG% 1.9 %; LYMPH % 23.5 %; LYMPH ABS # 1.33 K/uL (1.2-3.4); MEAN CELL VOLUME 81.3 fL (80-100); MEAN CORPUSCULAR HEMOGLOBIN 27.9 pg (25-34); MEAN CORPUSCULAR HGB CONC 34.3 g/dl (32-36); MEAN PLATELET VOLUME 9.6 fL (7.4-10.4); MONO % 16.6 %; NEUT % 48.6 %; PLATELET COUNT 307 K/uL (130-400); RED BLOOD COUNT 5.88 M/uL (4.7-6.1); WHITE BLOOD COUNT 5.66 K/uL (4.8-10.8)
[2017-06-23 09:18] LABS: ALB/GLOB RATIO 0.8 (0.9-2); BUN/CREATININE RATIO 11.2 (10-20); CALCIUM 8.6 mg/dl (8.5-10.1); CREATININE 1.2 mg/dl (0.60-1.40); POTASSIUM 3.6 mmol/L (3.5-5.1)
--- NOTE | 2017-06-23 10:29 | Nephrology Progress Note ---
Nephrology Progress Note Date of Service Jun 23, 2017. Chief Complaint F/U for acute kidney injury, proteinuria hematuria. Robert Salgado was seen and examined in his room this am. Overall feeling better, diarrhea continues, with occasional abdominal cramp. UO improved. BP stable. Acute kidney injury resolving, creatinine improved to 1.2. Review of Systems A complete review of systems was performed. Pertinent positives are noted above. All other systems are negative. Vital Signs Last 8 Hrs Date Time Temp Pulse Resp B/P (MAP) Pulse Ox O2 Delivery O2 Flow Rate FiO2 06/23/17 08:00 Room Air 06/23/17 07:39 36.5 71 18 104/69 (81) 99 Room Air Last Recorded Weight Weight (Kilograms): 97.500 Physical Exam GENERAL: Young male , AAA x 3, pleasant, healthy-appearing, not in any distress. NECK: Supple, no JVD. RESPIRATORY: Normal breathing efforts, no accessory muscle use, clear to auscultation bilaterally, no wheezes or rales. CARDIOVASCULAR: S1, S2 normal, rate rhythm regular. EXTREMITY: No lower extremity edema NEURO: speech fluent. PSYCHIATRY: Normal mood and judgment Family History Grandmother had chronic kidney disease and of renal failure. Dad has h/o nephrolithiasis. Social History Alcohol Use: none Drug Use: none Marital Status: (7mo daughter) Housing Status: lives with family (in [place]) Occupation: employed (works on a farm ) Laboratory Results Past 24 Hours 06/23/17 08:17 Red Blood Count 5.88, Mean Corpuscular Volume 81.3, Mean Corpuscular Hemoglobin 27.9, Mean Corpuscular Hemoglobin Concent 34.3, Mean Platelet Volume 9.6, Neutrophils (%) (Auto) 48.6, Lymphocytes (%) (Auto) 23.5, Monocytes (%) (Auto) 16.6, Eosinophils (%) (Auto) 7.1, Basophils (%) (Auto) 2.3, Neutrophils # (Auto ) 2.75, Lymphocytes # (Auto) 1.33, Monocytes # (Auto) 0.94, Eosinophils # (Auto ) 0.40, Basophils # (Auto) 0.13 06/22/17 17:20 06/23/17 08:17 Test 06/22/17 14:59 06/22/17 17:15 06/22/17 17:20 8/7/17 18:00 Erythrocyte Sedimentation Rate 14 mm/hr (0-14) C-Reactive Protein 1.19 mg/dl (0-0.29) Rheumatoid Factor < 10.0 U/mL (0-15) Urine Random Creatinine 310.0 mg/dl Urine Random Total Protein 287.0 mg/dl (0-11.9) Urine Random Sodium 8 mEq/L Urine Protein/Creatinine Ratio 0.9 (0-0.2) Anion Gap 8.0 mmol/L (3-11) Est Creatinine Clear Calc Drug Dose 99.2 ml/min Estimated GFR () 87.3 Estimated GFR (Non- 75.3 BUN/Creatinine Ratio 13.4 (10-20) Calcium Level 8.1 mg/dl (8.5-10.1) Test 06/23/17 08:17 White Blood Count 5.66 K/uL (4.8-10.8) Red Blood Count 5.88 M/uL (4.7-6.1) Hemoglobin 16.4 g/dL (14.0-18.0) Hematocrit 47.8 % (42-52) Mean Corpuscular Volume 81.3 fL (80-100) Mean Corpuscular Hemoglobin 27.9 pg (25-34) Mean Corpuscular Hemoglobin Concent 34.3 g/dl (32-36) Platelet Count 307 K/uL (130-400) Mean Platelet Volume 9.6 fL (7.4-10.4) Neutrophils (%) (Auto) 48.6 % Lymphocytes (%) (Auto) 23.5 % Monocytes (%) (Auto) 16.6 % Eosinophils (%) (Auto) 7.1 % Basophils (%) (Auto) 2.3 % Neutrophils # (Auto) 2.75 K/uL (1.4-6.5) Lymphocytes # (Auto) 1.33 K/uL (1.2-3.4) Monocytes # (Auto) 0.94 K/uL (0.11-0.59) Eosinophils # (Auto) 0.40 K/uL (0-0.5) Basophils # (Auto) 0.13 K/uL (0-0.2) RDW Standard Deviation 40.2 fL (36.4-46.3) RDW Coefficient of Variation 13.5 % (11.5-14.5) Immature Granulocyte % (Auto) 1.9 % Immature Granulocyte # (Auto) 0.11 K/uL (0.00-0.02) Anion Gap 4.0 mmol/L (3-11) Est Creatinine Clear Calc Drug Dose 107.5 ml/min Estimated GFR () 96.1 Estimated GFR (Non- 83.0 BUN/Creatinine Ratio 11.2 (10-20) Calcium Level 8.6 mg/dl (8.5-10.1) Total Bilirubin 2.2 mg/dl (0.2-1) Aspartate Amino Transf (AST/SGOT) 203 U/L (15-37) Alanine Aminotransferase (ALT/SGPT) 341 U/L (12-78) Alkaline Phosphatase 149 U/L (45-117) Total Protein 7.1 gm/dl (6.4-8.2) Albumin 3.1 gm/dl (3.4-5.0) Globulin 4.0 gm/dl (2.5-4.0) Albumin/Globulin Ratio 0.8 (0.9-2) Lipase 466 U/L (73-393) Date/Time Source Procedure Growth Status 06/22/17 18:00 Stool Rotavirus Antigen - Final Negative for Rotavirus Antigen Complete 06/22/17 09:40 Stool C.difficile Toxin B Gene (PCR) - Final No C. difficile toxin B gene detected Complete Allergies Coded Allergies: No Known Allergies (Unverified , 06/22/17) Medications Current Inpatient Medications Medications (Trade) Dose Ordered Sig/Smooth Route Start Time Stop Time Status Last Admin Dose Admin Ioversol (Optiray 320) 100 ml UD PRN IV 06/22/17 08:30 06/26/17 08:29 Heparin Sodium (Porcine) (Heparin Sq 5000 Unit/0.5ml) 5,000 unit Q8 SQ 06/22/17 15:00 07/22/17 14:59 06/23/17 06:14 5,000 UNIT Al Hydrox/Mg Hydrox/Simethicone (Maalox Max Susp) 15 ml Q4H PRN PO 06/22/17 12:30 07/22/17 12:29 Ondansetron HCl (Zofran Inj) 4 mg Q6H PRN IV 06/22/17 12:30 07/22/17 12:29 Potassium Chloride/Sodium Chloride 1,000 ml @ 150 mls/hr Q6H40M IV 06/22/17 15:00 07/22/17 14:59 06/23/17 04:39 150 MLS/HR Morphine Sulfate (MoRPHine SULFATE INJ) 2 mg Q3H PRN IV 06/22/17 12:30 07/06/17 12:29 Ranitidine HCl 50 mg/Dextrose 102 ml @ 200 mls/hr Q8H IV 06/22/17 15:00 07/22/17 14:59 06/23/17 06:17 200 MLS/HR Impression (1) ROXANNE (acute kidney injury) (2) Hematuria (3) Proteinuria (4) Hypokalemia Damian is a 26-year-old gentlemen with acute kidney injury, hematuria, proteinuria in the setting of diarrheal illness for more than 10 days. No prior history of chronic kidney disease, hematuria proteinuria. Reports decreased UO for last few days with dark urine but he did urinate while in ED. CT scan unremarkable kidneys without obstruction nephrolithiasis. Otherwise has been very healthy with no prior history of chronic kidney disease, was not on any nephrotoxins medications. Received Cipro for 3 days, stopped on 06/17/17. No NSAID use. Urinalysis with significant pyuria, proteinuria, hematuria as well as granular and WBC cast. Acute kidney injury could be secondary to ATN versus prerenal etiology with diarrheal illness for 10 days with poor p.o. intake. However with active urine sediment specially WBC cast in the setting of high grade proteinuria and hematuria raises concern for intrinsic renal etiology such as acute interstitial nephritis or glomerular pathology. Recommendations --Continue supportive care with IV hydration and encourage p.o. intake as tolerated. --Roxanne resolving with improved renal function. --pending 24 hour urine for proteinuria and serological workup --avoid nephrotoxins medications --once GI symptoms improve, patient can be discharged, will follow the results of serological workup as an outpatient will follow This chart was completed utilizing [employer] Speech and voice recognition software. Grammatical errors, random word insertions, pronoun errors and incomplete sentences are occasional consequences of this system. Any questions or concerns about the content, text or information contained within the body of this dictation should be addressed directly to the physician for clarification.
--- NOTE | 2017-06-23 10:53 | Gastroenterology Progress Note ---
Progress Note Date of Service: Jun 23, 2017 Subjective Pt evaluation today including: conversation w/ patient, physical exam, chart review, lab review Pt seen and evaluated this AM. DB came back overnight as 2.4. He is no longer having upper abdominal pain, nausea or vomiting. Is having persistent diarrhea. He tells me his symptoms are 50% improved. LFTs are still elevated. RUQ US was unremarkable. Review of Systems Constitutional: No fever, No chills Respiratory: No cough, No shortness of breath Cardiac: No chest pain, No edema Abdomen: + pain, + diarrhea, No nausea, No vomiting, No constipation, No GI bleeding Medications Current Inpatient Medications Medications (Trade) Dose Ordered Sig/Smooth Route Start Time Stop Time Status Last Admin Dose Admin Ioversol (Optiray 320) 100 ml UD PRN IV 06/22/17 08:30 06/26/17 08:29 Heparin Sodium (Porcine) (Heparin Sq 5000 Unit/0.5ml) 5,000 unit Q8 SQ 06/22/17 15:00 07/22/17 14:59 06/23/17 06:14 5,000 UNIT Al Hydrox/Mg Hydrox/Simethicone (Maalox Max Susp) 15 ml Q4H PRN PO 06/22/17 12:30 07/22/17 12:29 Ondansetron HCl (Zofran Inj) 4 mg Q6H PRN IV 06/22/17 12:30 07/22/17 12:29 Potassium Chloride/Sodium Chloride 1,000 ml @ 150 mls/hr Q6H40M IV 06/22/17 15:00 07/22/17 14:59 06/23/17 10:28 150 MLS/HR Morphine Sulfate (MoRPHine SULFATE INJ) 2 mg Q3H PRN IV 06/22/17 12:30 07/06/17 12:29 Ranitidine HCl 50 mg/Dextrose 102 ml @ 200 mls/hr Q8H IV 06/22/17 15:00 07/22/17 14:59 06/23/17 06:17 200 MLS/HR Objective Vital Signs Date Time Temp Pulse Resp B/P (MAP) Pulse Ox O2 Delivery O2 Flow Rate FiO2 06/23/17 08:00 Room Air 06/23/17 07:39 36.5 71 18 104/69 (81) 99 Room Air 06/23/17 00:19 Room Air 06/23/17 00:00 36.4 66 20 124/80 (95) 100 Room Air 06/22/17 16:00 Room Air 06/22/17 14:21 36.5 69 18 118/78 (91) 98 06/22/17 14:04 74 20 109/69 99 06/22/17 11:48 77 20 121/70 99 Room Air 06/22/17 11:28 99 Room Air Physical Exam General Appearance: no apparent distress Eyes: PERRL ENT: hearing grossly normal Neck: supple Respiratory/Chest: lungs clear Cardiovascular: regular rate, rhythm Abdomen: soft, no organomegaly, no pulsatile mass, + tenderness (generalized x 4 ) Neurologic/Psych: alert, normal mood/affect, oriented x 3 Skin: normal color Laboratory Results Last 24 Hours Test 06/22/17 14:59 06/22/17 17:15 06/22/17 17:20 06/22/17 18:00 Erythrocyte Sedimentation Rate 14 mm/hr C-Reactive Protein 1.19 mg/dl Rheumatoid Factor < 10.0 U/mL Urine Random Creatinine 310.0 mg/dl Urine Random Total Protein 287.0 mg/dl Urine Random Sodium 8 mEq/L Urine Protein/Creatinine Ratio 0.9 Sodium Level 136 mmol/L Potassium Level 3.0 mmol/L Chloride Level 106 mmol/L Carbon Dioxide Level 22 mmol/L Anion Gap 8.0 mmol/L Blood Urea Nitrogen 17 mg/dl Creatinine 1.30 mg/dl Est Creatinine Clear Calc Drug Dose 99.2 ml/min Estimated GFR () 87.3 Estimated GFR (Non- 75.3 BUN/Creatinine Ratio 13.4 Random Glucose 86 mg/dl Calcium Level 8.1 mg/dl Test 06/23/17 08:17 White Blood Count 5.66 K/uL Red Blood Count 5.88 M/uL Hemoglobin 16.4 g/dL Hematocrit 47.8 % Mean Corpuscular Volume 81.3 fL Mean Corpuscular Hemoglobin 27.9 pg Mean Corpuscular Hemoglobin Concent 34.3 g/dl Platelet Count 307 K/uL Mean Platelet Volume 9.6 fL Neutrophils (%) (Auto) 48.6 % Lymphocytes (%) (Auto) 23.5 % Monocytes (%) (Auto) 16.6 % Eosinophils (%) (Auto) 7.1 % Basophils (%) (Auto) 2.3 % Neutrophils # (Auto) 2.75 K/uL Lymphocytes # (Auto) 1.33 K/uL Monocytes # (Auto) 0.94 K/uL Eosinophils # (Auto) 0.40 K/uL Basophils # (Auto) 0.13 K/uL RDW Standard Deviation 40.2 fL RDW Coefficient of Variation 13.5 % Immature Granulocyte % (Auto) 1.9 % Immature Granulocyte # (Auto) 0.11 K/uL Sodium Level 137 mmol/L Potassium Level 3.6 mmol/L Chloride Level 109 mmol/L Carbon Dioxide Level 24 mmol/L Anion Gap 4.0 mmol/L Blood Urea Nitrogen 13 mg/dl Creatinine 1.20 mg/dl Est Creatinine Clear Calc Drug Dose 107.5 ml/min Estimated GFR () 96.1 Estimated GFR (Non- 83.0 BUN/Creatinine Ratio 11.2 Random Glucose 83 mg/dl Calcium Level 8.6 mg/dl Total Bilirubin 2.2 mg/dl Aspartate Amino Transf (AST/SGOT) 203 U/L Alanine Aminotransferase (ALT/SGPT) 341 U/L Alkaline Phosphatase 149 U/L Total Protein 7.1 gm/dl Albumin 3.1 gm/dl Globulin 4.0 gm/dl Albumin/Globulin Ratio 0.8 Lipase 466 U/L Assessment and Plan Impression Patient is a 26 year old male with a 1-2 week history of N/V/D with who was seen in [place] ED and sent home with a script of cipro without any resolution of his symptoms - Labs at ED with transaminitis with DB pending and ROXANNE. Plan - MRCP - follow up stools - CMP daily - PPI once daily - Clear liquid diet --> advance as tolerated - IVF hydration - antiemetics PRN - hold on antidiarrheal agents - Acute hepatitis panel - if negative and LFTs aren't trending down will need additional work up I have seen , examined and agree with the plan as outlined by EMPERATRIZ Benavides as above. -symptoms consistent with viral gastroenteritis -Follow LFTs MRCP Call with any questions. GI will follow
--- NOTE | 2017-06-23 12:19 | Hospitalist Progress Note ---
Hospitalist Progress Note Date of Service Jun 23, 2017. (Macarena Adair ., PA-C) Subjective Pt evaluation today including: conversation w/ patient, physical exam, chart review, lab review, review of studies, review of inpatient medication list Patient states he feels 50% improved since admission. Symptoms have been ongoing since 06/13. Daughter had similar symptoms and was treated w/ supportive care. Went to [facility] on Thursday- placed on Cipro, no improvement in symptoms. +mild abdominal discomfort. +diarrhea- improving. +UO is improving, still dark yellow. +nausea, but no vomiting. +fatigue/generalized weakness. Patient denies any fever, chills, sweats, lightheadedness, dizziness, vision changes, CP, palpitations, edema, SOB, wheezing, cough, vomiting, urinary symptoms, melena, numbness/tingling, muscle/joint pain, anxiety/depression, active bleeding, or new skin discoloration/changes. (Macarena Adair ., PA-C) Medications Current Inpatient Medications Medications (Trade) Dose Ordered Sig/Smooth Route Start Time Stop Time Status Last Admin Dose Admin Ioversol (Optiray 320) 100 ml UD PRN IV 06/22/17 08:30 06/26/17 08:29 Heparin Sodium (Porcine) (Heparin Sq 5000 Unit/0.5ml) 5,000 unit Q8 SQ 06/22/17 15:00 07/22/17 14:59 06/23/17 06:14 5,000 UNIT Al Hydrox/Mg Hydrox/Simethicone (Maalox Max Susp) 15 ml Q4H PRN PO 06/22/17 12:30 07/22/17 12:29 Ondansetron HCl (Zofran Inj) 4 mg Q6H PRN IV 06/22/17 12:30 07/22/17 12:29 Potassium Chloride/Sodium Chloride 1,000 ml @ 150 mls/hr Q6H40M IV 06/22/17 15:00 07/22/17 14:59 06/23/17 10:28 150 MLS/HR Morphine Sulfate (MoRPHine SULFATE INJ) 2 mg Q3H PRN IV 06/22/17 12:30 07/06/17 12:29 Ranitidine HCl 50 mg/Dextrose 102 ml @ 200 mls/hr Q8H IV 06/22/17 15:00 07/22/17 14:59 06/23/17 06:17 200 MLS/HR (Macarena Adair PA-C) Objective Vital Signs Date Time Temp Pulse Resp B/P (MAP) Pulse Ox O2 Delivery O2 Flow Rate FiO2 06/23/17 08:00 Room Air 06/23/17 07:39 36.5 71 18 104/69 (81) 99 Room Air 06/23/17 00:19 Room Air 06/23/17 00:00 36.4 66 20 124/80 (95) 100 Room Air 06/22/17 16:00 Room Air 06/22/17 14:21 36.5 69 18 118/78 (91) 98 06/22/17 14:04 74 20 109/69 99 (Macarena Adair, CARLOS ENRIQUEC) Physical Exam General Appearance: WD/WN, no apparent distress Eyes: normal inspection, PERRL ENT: hearing grossly normal Neck: supple Respiratory/Chest: lungs clear, no respiratory distress, no accessory muscle use Cardiovascular: regular rate, rhythm Abdomen: normal bowel sounds, soft, + tenderness (mild ttp of epigastric region ) Extremities: no pedal edema, no calf tenderness Neurologic/Psychiatric: alert, normal mood/affect, oriented x 3 Skin: normal color, warm/dry, no rash (Macarena Adair, CARLOS ENRIQUEC) Laboratory Results Last 24 Hours Test 06/22/17 14:59 06/22/17 17:15 06/22/17 17:20 06/22/17 18:00 Erythrocyte Sedimentation Rate 14 mm/hr C-Reactive Protein 1.19 mg/dl Rheumatoid Factor < 10.0 U/mL Urine Random Creatinine 310.0 mg/dl Urine Random Total Protein 287.0 mg/dl Urine Random Sodium 8 mEq/L Urine Protein/Creatinine Ratio 0.9 Sodium Level 136 mmol/L Potassium Level 3.0 mmol/L Chloride Level 106 mmol/L Carbon Dioxide Level 22 mmol/L Anion Gap 8.0 mmol/L Blood Urea Nitrogen 17 mg/dl Creatinine 1.30 mg/dl Est Creatinine Clear Calc Drug Dose 99.2 ml/min Estimated GFR () 87.3 Estimated GFR (Non- 75.3 BUN/Creatinine Ratio 13.4 Random Glucose 86 mg/dl Calcium Level 8.1 mg/dl Test 06/23/17 08:17 White Blood Count 5.66 K/uL Red Blood Count 5.88 M/uL Hemoglobin 16.4 g/dL Hematocrit 47.8 % Mean Corpuscular Volume 81.3 fL Mean Corpuscular Hemoglobin 27.9 pg Mean Corpuscular Hemoglobin Concent 34.3 g/dl Platelet Count 307 K/uL Mean Platelet Volume 9.6 fL Neutrophils (%) (Auto) 48.6 % Lymphocytes (%) (Auto) 23.5 % Monocytes (%) (Auto) 16.6 % Eosinophils (%) (Auto) 7.1 % Basophils (%) (Auto) 2.3 % Neutrophils # (Auto) 2.75 K/uL Lymphocytes # (Auto) 1.33 K/uL Monocytes # (Auto) 0.94 K/uL Eosinophils # (Auto) 0.40 K/uL Basophils # (Auto) 0.13 K/uL RDW Standard Deviation 40.2 fL RDW Coefficient of Variation 13.5 % Immature Granulocyte % (Auto) 1.9 % Immature Granulocyte # (Auto) 0.11 K/uL Sodium Level 137 mmol/L Potassium Level 3.6 mmol/L Chloride Level 109 mmol/L Carbon Dioxide Level 24 mmol/L Anion Gap 4.0 mmol/L Blood Urea Nitrogen 13 mg/dl Creatinine 1.20 mg/dl Est Creatinine Clear Calc Drug Dose 107.5 ml/min Estimated GFR () 96.1 Estimated GFR (Non- 83.0 BUN/Creatinine Ratio 11.2 Random Glucose 83 mg/dl Calcium Level 8.6 mg/dl Total Bilirubin 2.2 mg/dl Aspartate Amino Transf (AST/SGOT) 203 U/L Alanine Aminotransferase (ALT/SGPT) 341 U/L Alkaline Phosphatase 149 U/L Total Protein 7.1 gm/dl Albumin 3.1 gm/dl Globulin 4.0 gm/dl Albumin/Globulin Ratio 0.8 Lipase 466 U/L (Macarena Adair, CARLOS ENRIQUEC) Assessment and Plan 26 y/o male with no significant PMH presenting with presumed infectious enteritis x 10 days, abnormal LFTs, acute kidney failure, and significant proteinuria/hematuria. He also had been having intermittent gross hematuria earlier in May. Gastroenteritis, ?secondary to viral vs infectious etiology/abnormal LFTs: - Admit to med/surg - C.diff, stool cultures, and Rotavirus antigen negative - Giardia and stool O/P- pending - Acute hepatitis panel- negative - IV Zofran PRN for nausea - IV Zantac q8 hrs - Clear liquid diet, advance as tolerated - RUQ US- No gallstones or biliary ductal dilatation. Possible fatty infiltration of the liver. - Abdominal CT- 1. No renal, ureteral, or bladder calculi identified. No evidence of bowel obstruction. No evidence of free air. Normal appendix. No evidence of acute diverticulitis. Mild mesenteric lymphadenopathy, likely reactive. A 6 month follow-up study would seem prudent. Subtle nonspecific infiltration of the fat adjacent to the celiac origin. - GI consulted, appreciate recommendations -- Planning for MRCP Acute renal failure w/ proteinuria and hematuria, ?secondary to dehydration vs ATN- IMPROVING: - Cr. 1.80 at admission--> now 1.20 - IVF @ 150 ml/hr - Encourage PO intake - Consulted nephrology, appreciate recommendations -- 24 hour urine for proteinuria and serological workup -- Avoid nephrotoxins medications -- Once GI symptoms improve, patient can be discharged- follow the results of serological workup as an outpatient Elevated lipase, likely secondary to ARF/dehydration: Lipase trending down Hyponatremia at 132 on admission, likely due to volume depletion- RESOLVED: - IVF - Follow BMP Hypokalemia at 3.0, secondary to diarrhea- RESOLVED: - Replaced w/ IV KCL 30 mEq supplement in ED- continue IVF + KCL - Mag- WNL - Follow PRP GI Prophylaxis: IV Zantac DVT Prophylaxis: Heparin SQ TID Code Status: LEVEL I, FULL Dispo: From home, lives w/ family- no discharge needs anticipated- hopeful discharge to home tomorrow (Macarena Adair ., PA-C) PA Physician Supervision Note: I interviewed and examined the patient. Discussed with Macarena Adair PAC and agree with findings and plan as documented in the note. Any exceptions or clarifications are listed here: None Patient admitted after prolonged gastrointestinal illness with acute renal failure with concern for hematuria and possibly glomerular nephritis Initial infectious studies have been unremarkable patient improved greatly with hydration, we're in the process of collecting a 24-hour urine however he still is having fairly frequent diarrhea. Vital signs are stable Abdomen is soft mildly distended tender in the epigastrium more than lower quadrants Acute kidney injury from dehydration associated with diarrhea plan complete nephrology workup directed by Dr. Nazarene, continue hydration, once infectious studies are negative employee antidiarrheal agents Documented By: Inderjit Campbell (Inderjit Campbell M.D.)
[2017-06-23 15:20] VITALS: BP 117/79; PULSE 69; TEMP 36.7; O2SAT 99
[2017-06-23 19:43] LABS: PATIENT HEIGHT 175.3 cm
[2017-06-23 20:20] LABS: CREATININE 1.2 mg/dl (0.6-1.4)
[2017-06-23 20:27] LABS: URINE TOTAL PROTEIN 252.6 mg/dl (0-11.9)
[2017-06-23 23:19] VITALS: BP 108/73; PULSE 71; TEMP 36.6; O2SAT 99
--- NOTE | 2017-06-23 23:55 | DIAGNOSTIC IMAGING REPORT ---
MRCP HISTORY: 26 years-old Male acute abdominal pain for 2 weeks with associated diarrhea, nausea and vomiting. COMPARISON: Right upper quadrant ultrasound 06/22/2017, CT abdomen and pelvis 06/22/2017. TECHNIQUE: Noncontrast MRCP was obtained with MIP reformats. FINDINGS: No intrahepatic or extrahepatic biliary ductal dilatation is seen. No filling defects, stricturing or obstructing masses are seen. There is no evidence of pancreatic divisum. The pancreatic duct appears normal. Gallbladder is within normal limits without evidence of gallstones. The previously described mildly enlarged nonspecific mesenteric lymph nodes seen on comparison CT are not as well seen on this study. IMPRESSION: Unremarkable MRCP without evidence of acute biliary abnormality or obstruction. The above report was generated using voice recognition software. It may contain grammatical, syntax or spelling errors. Electronically signed by: Damian Fisher M.D. 06/23/2017 11:54 PM Dictated Date/Time: 06/23/2017 11:49 PM
[2017-06-24] MEDS: NSS + 20MEQ KCL 1000ML 1,000 ML IV SCH ×4 (01:41→21:04)
[2017-06-24] MEDS: HEPARIN SOD 5000 UNIT/0.5 ML CARP SQ SCH ×3 (06:00→22:09)
[2017-06-24 07:05] VITALS: BP 107/72; PULSE 68; TEMP 36.5; O2SAT 99
[2017-06-24] MEDS: RANITIDINE IV 50 MG in DEXTROSE 5% 100ML 100 ML IV SCH ×3 (07:24→22:06)
[2017-06-24 08:38] LABS: BUN/CREATININE RATIO 10.4 (10-20); CALCIUM 8.5 mg/dl (8.5-10.1); CREATININE 1.1 mg/dl (0.60-1.40); POTASSIUM 3.8 mmol/L (3.5-5.1)
[2017-06-24 08:50] LABS: ALB/GLOB RATIO 0.7 (0.9-2)
--- NOTE | 2017-06-24 10:44 | Nephrology Progress Note ---
Nephrology Progress Note Date of Service Jun 24, 2017. Chief Complaint F/U for acute kidney injury, proteinuria hematuria. Robert Salgado was seen and examined in his room this am. Overall feeling better, diarrhea and abdominal cramps has been improving. Has been tolerating liquid diet without any GI upset. UO improved. BP stable. Acute kidney injury resolved, creatinine normalized to 1.1, electrolyte abnormality resolved. Review of Systems A complete review of systems was performed. Pertinent positives are noted above. All other systems are negative. Vital Signs Last 8 Hrs Date Time Temp Pulse Resp B/P (MAP) Pulse Ox O2 Delivery O2 Flow Rate FiO2 06/24/17 07:05 36.5 68 18 107/72 (84) 99 Room Air Last Recorded Weight Weight (Kilograms): 97.500 Physical Exam GENERAL: Young male , AAA x 3, pleasant, healthy-appearing, not in any distress. NECK: Supple, no JVD. RESPIRATORY: Normal breathing efforts, no accessory muscle use, clear to auscultation bilaterally, no wheezes or rales. CARDIOVASCULAR: S1, S2 normal, rate rhythm regular. EXTREMITY: No lower extremity edema NEURO: speech fluent. PSYCHIATRY: Normal mood and judgment Family History Grandmother had chronic kidney disease and of renal failure. Dad has h/o nephrolithiasis. Social History Alcohol Use: none Drug Use: none Marital Status: (7mo daughter) Housing Status: lives with family (in [place]) Occupation: employed (works on a farm ) Laboratory Results Past 24 Hours 06/23/17 19:30 Test 06/23/17 19:30 06/24/17 07:23 Urine Collection Time 24 HOURS Urine Total Volume 550 mL Urine Creatinine 400.0 mg/dl Urine Creatinine 24 Hour 2.2 GM/24 HR (0.8-2.0) Urine Creatinine Clearance 24 Hour 103.4 ml/min (97-137) Urine Total Protein 24 Hour 1389 MG/24 HR (0-150) Urine Total Protein 252.6 mg/dl (0-11.9) Allergies Coded Allergies: No Known Allergies (Unverified , 06/22/17) Medications Current Inpatient Medications Medications (Trade) Dose Ordered Sig/Smooth Route Start Time Stop Time Status Last Admin Dose Admin Ioversol (Optiray 320) 100 ml UD PRN IV 06/22/17 08:30 06/26/17 08:29 Heparin Sodium (Porcine) (Heparin Sq 5000 Unit/0.5ml) 5,000 unit Q8 SQ 06/22/17 15:00 07/22/17 14:59 06/23/17 22:25 5,000 UNIT Al Hydrox/Mg Hydrox/Simethicone (Maalox Max Susp) 15 ml Q4H PRN PO 06/22/17 12:30 07/22/17 12:29 Ondansetron HCl (Zofran Inj) 4 mg Q6H PRN IV 06/22/17 12:30 07/22/17 12:29 Potassium Chloride/Sodium Chloride 1,000 ml @ 150 mls/hr Q6H40M IV 06/22/17 15:00 07/22/17 14:59 06/24/17 07:24 150 MLS/HR Morphine Sulfate (MoRPHine SULFATE INJ) 2 mg Q3H PRN IV 06/22/17 12:30 07/06/17 12:29 Ranitidine HCl 50 mg/Dextrose 102 ml @ 200 mls/hr Q8H IV 06/22/17 15:00 07/22/17 14:59 06/24/17 07:24 200 MLS/HR Impression (1) ROXANNE (acute kidney injury) (2) Hematuria (3) Proteinuria (4) Hypokalemia Damian is a 26-year-old gentlemen with acute kidney injury, hematuria, proteinuria in the setting of diarrheal illness for more than 10 days. No prior history of chronic kidney disease, hematuria proteinuria. Reports decreased UO for last few days with dark urine but he did urinate while in ED. CT scan unremarkable kidneys without obstruction nephrolithiasis. Otherwise has been very healthy with no prior history of chronic kidney disease, was not on any nephrotoxins medications. Received Cipro for 3 days, stopped on 06/17/17. No NSAID use. Urinalysis with significant pyuria, proteinuria, hematuria as well as granular and WBC cast. Acute kidney injury could be secondary to ATN versus prerenal etiology with diarrheal illness for 10 days with poor p.o. intake. However with active urine sediment specially WBC cast in the setting of high grade proteinuria and hematuria raises concern for intrinsic renal etiology such as acute interstitial nephritis or glomerular pathology. Recommendations --Continue supportive care with IV hydration and encourage p.o. intake as tolerated. --Roxanne resolved with improved renal function. --has moderate degree proteinuria, 1.5 gram in 24 hour urine. Rest of the workup still pending. --plan is to repeat 24 hour urine and renal panel in 2 weeks and follow up as an outpatient. If patient continues to have significant proteinuria or any other abnormality from rest of the workup, may need to eventually consider renal biopsy for further evaluation. Patient will get labs done 2-3 days before his outpatient visit in 2-3 weeks. will sign off This chart was completed utilizing [employer] Speech and voice recognition software. Grammatical errors, random word insertions, pronoun errors and incomplete sentences are occasional consequences of this system. Any questions or concerns about the content, text or information contained within the body of this dictation should be addressed directly to the physician for clarification.
--- NOTE | 2017-06-24 10:47 | Gastroenterology Progress Note ---
Progress Note Date of Service: Jun 24, 2017 Subjective Pt evaluation today including: conversation w/ patient, physical exam, chart review, lab review pt was seen and evaluated. No acute events over night. he is feeling well and wants his diet advanced. No fever, chills, CP, SOB. No longer having abdominal pain, nausea or vomiting. BMs are improving but still watery. He has had 6 BMs since yesterday afternoon. This is improved from 20 prior to admission. Stool are negative to date. MRCP 06/23/17: No intrahepatic or extrahepatic biliary ductal dilatation is seen. No filling defects, stricturing or obstructing masses are seen. There is no evidence of pancreatic divisum. The pancreatic duct appears normal. Gallbladder is within normal limits without evidence of gallstones. Review of Systems Constitutional: No fever, No chills Respiratory: No cough, No shortness of breath Cardiac: No chest pain Abdomen: + diarrhea, No pain, No nausea, No vomiting, No constipation, No GI bleeding Medications Current Inpatient Medications Medications (Trade) Dose Ordered Sig/Smooth Route Start Time Stop Time Status Last Admin Dose Admin Ioversol (Optiray 320) 100 ml UD PRN IV 06/22/17 08:30 06/26/17 08:29 Heparin Sodium (Porcine) (Heparin Sq 5000 Unit/0.5ml) 5,000 unit Q8 SQ 06/22/17 15:00 07/22/17 14:59 06/23/17 22:25 5,000 UNIT Al Hydrox/Mg Hydrox/Simethicone (Maalox Max Susp) 15 ml Q4H PRN PO 06/22/17 12:30 07/22/17 12:29 Ondansetron HCl (Zofran Inj) 4 mg Q6H PRN IV 06/22/17 12:30 07/22/17 12:29 Potassium Chloride/Sodium Chloride 1,000 ml @ 150 mls/hr Q6H40M IV 06/22/17 15:00 07/22/17 14:59 06/24/17 07:24 150 MLS/HR Morphine Sulfate (MoRPHine SULFATE INJ) 2 mg Q3H PRN IV 06/22/17 12:30 07/06/17 12:29 Ranitidine HCl 50 mg/Dextrose 102 ml @ 200 mls/hr Q8H IV 06/22/17 15:00 07/22/17 14:59 06/24/17 07:24 200 MLS/HR Objective Vital Signs Date Time Temp Pulse Resp B/P (MAP) Pulse Ox O2 Delivery O2 Flow Rate FiO2 06/24/17 08:00 Room Air 06/24/17 07:05 36.5 68 18 107/72 (84) 99 Room Air 06/24/17 00:00 Room Air 06/23/17 23:19 36.6 71 18 108/73 (85) 99 Room Air 06/23/17 16:20 Room Air 06/23/17 15:20 36.7 69 20 117/79 (92) 99 Physical Exam General Appearance: no apparent distress Eyes: normal inspection ENT: hearing grossly normal Neck: supple Respiratory/Chest: lungs clear Cardiovascular: regular rate, rhythm Abdomen: normal bowel sounds, non tender, soft, no organomegaly, no pulsatile mass Neurologic/Psych: alert, normal mood/affect, oriented x 3 Skin: normal color, no jaundice Laboratory Results Last 24 Hours Test 06/23/17 19:30 06/24/17 07:23 Urine Collection Time 24 HOURS Urine Total Volume 550 mL Urine Creatinine 400.0 mg/dl Urine Creatinine 24 Hour 2.2 GM/24 HR Urine Creatinine Clearance 24 Hour 103.4 ml/min Urine Total Protein 24 Hour 1389 MG/24 HR Urine Total Protein 252.6 mg/dl Creatinine 1.20 mg/dl 1.10 mg/dl Sodium Level 139 mmol/L Potassium Level 3.8 mmol/L Chloride Level 112 mmol/L Carbon Dioxide Level 21 mmol/L Anion Gap 6.0 mmol/L Blood Urea Nitrogen 11 mg/dl Est Creatinine Clear Calc Drug Dose 117.2 ml/min Estimated GFR () 106.8 Estimated GFR (Non- 92.2 BUN/Creatinine Ratio 10.4 Random Glucose 82 mg/dl Calcium Level 8.5 mg/dl Total Bilirubin 0.9 mg/dl Aspartate Amino Transf (AST/SGOT) 98 U/L Alanine Aminotransferase (ALT/SGPT) 257 U/L Alkaline Phosphatase 150 U/L Total Protein 7.5 gm/dl Albumin 3.2 gm/dl Globulin 4.3 gm/dl Albumin/Globulin Ratio 0.7 Assessment and Plan Patient is a 26 year old male with a 1-2 week history of N/V/D with who was seen in [facility] and sent home with a script of cipro without any resolution of his symptoms - Labs at ED with transaminitis with DB pending and ROXANNE. MRCP negative and LFTs are improving daily. Plan - continue to follow up stools --> negative to date - CMP daily - he will need CMP checked a week after discharge to assess - PPI once daily - Clear liquid diet --> advance as tolerated --> GI is ok for regular diet - IVF hydration - antiemetics PRN - hold on antidiarrheal agents - Acute hepatitis panel negative - Giardia pending GI to sign off. Please call with any questions or concerns. ATTESTATION: I have performed a history and physical examination of this patient and reviewed the electronic record. Specifically, on physical examination abdomen is soft and not tender. I have discussed the case with EMPERATRIZ Malloy. The above note reflects my findings, conclusions, and recommendations. Brown Boogie MD
--- NOTE | 2017-06-24 11:44 | Hospitalist Progress Note ---
Hospitalist Progress Note Date of Service Jun 24, 2017. (Macarena Adair ., PA-C) Subjective Pt evaluation today including: conversation w/ patient, physical exam, chart review, lab review, review of studies, review of inpatient medication list Voiding: no voiding problems, no incontinence Patient feeling well. Abdominal pain has resolved. Tolerated full liquid diet- requesting full diet. Mild nausea, no vomiting. Diarrhea continues, but improving. Little UO- encouraged PO intake Patient denies any fever, chills, sweats, lightheadedness, dizziness, vision changes, CP, palpitations, edema, SOB, wheezing, cough, abdominal pain, vomiting , urinary symptoms, melena, numbness/tingling, weakness, muscle/joint pain, anxiety/depression, active bleeding, or new skin discoloration/changes. Per RN, faith UO and tea colored. (Macarena Adair ., ELENA-C) Medications Current Inpatient Medications Medications (Trade) Dose Ordered Sig/Smooth Route Start Time Stop Time Status Last Admin Dose Admin Ioversol (Optiray 320) 100 ml UD PRN IV 06/22/17 08:30 06/26/17 08:29 Heparin Sodium (Porcine) (Heparin Sq 5000 Unit/0.5ml) 5,000 unit Q8 SQ 06/22/17 15:00 07/22/17 14:59 06/23/17 22:25 5,000 UNIT Al Hydrox/Mg Hydrox/Simethicone (Maalox Max Susp) 15 ml Q4H PRN PO 06/22/17 12:30 07/22/17 12:29 Ondansetron HCl (Zofran Inj) 4 mg Q6H PRN IV 06/22/17 12:30 07/22/17 12:29 Potassium Chloride/Sodium Chloride 1,000 ml @ 150 mls/hr Q6H40M IV 06/22/17 15:00 07/22/17 14:59 06/24/17 07:24 150 MLS/HR Morphine Sulfate (MoRPHine SULFATE INJ) 2 mg Q3H PRN IV 06/22/17 12:30 07/06/17 12:29 Ranitidine HCl 50 mg/Dextrose 102 ml @ 200 mls/hr Q8H IV 06/22/17 15:00 07/22/17 14:59 06/24/17 07:24 200 MLS/HR (Macarena Adair, ELENA-C) Objective Vital Signs Date Time Temp Pulse Resp B/P (MAP) Pulse Ox O2 Delivery O2 Flow Rate FiO2 06/24/17 08:00 Room Air 06/24/17 07:05 36.5 68 18 107/72 (84) 99 Room Air 06/24/17 00:00 Room Air 06/23/17 23:19 36.6 71 18 108/73 (85) 99 Room Air 06/23/17 16:20 Room Air 06/23/17 15:20 36.7 69 20 117/79 (92) 99 (Macarena Adair PA-C) Physical Exam General Appearance: WD/WN, no apparent distress Eyes: normal inspection, PERRL ENT: hearing grossly normal Neck: supple Respiratory/Chest: lungs clear, no respiratory distress, no accessory muscle use Cardiovascular: regular rate, rhythm Abdomen: normal bowel sounds, non tender, soft Extremities: no pedal edema, no calf tenderness Neurologic/Psychiatric: alert, normal mood/affect, oriented x 3 Skin: normal color, warm/dry, no rash (Macarena Adair, ELENA-C) Laboratory Results Last 24 Hours Test 06/23/17 19:30 06/24/17 07:23 Urine Collection Time 24 HOURS Urine Total Volume 550 mL Urine Creatinine 400.0 mg/dl Urine Creatinine 24 Hour 2.2 GM/24 HR Urine Creatinine Clearance 24 Hour 103.4 ml/min Urine Total Protein 24 Hour 1389 MG/24 HR Urine Total Protein 252.6 mg/dl Creatinine 1.20 mg/dl 1.10 mg/dl Sodium Level 139 mmol/L Potassium Level 3.8 mmol/L Chloride Level 112 mmol/L Carbon Dioxide Level 21 mmol/L Anion Gap 6.0 mmol/L Blood Urea Nitrogen 11 mg/dl Est Creatinine Clear Calc Drug Dose 117.2 ml/min Estimated GFR () 106.8 Estimated GFR (Non- 92.2 BUN/Creatinine Ratio 10.4 Random Glucose 82 mg/dl Calcium Level 8.5 mg/dl Total Bilirubin 0.9 mg/dl Aspartate Amino Transf (AST/SGOT) 98 U/L Alanine Aminotransferase (ALT/SGPT) 257 U/L Alkaline Phosphatase 150 U/L Total Protein 7.5 gm/dl Albumin 3.2 gm/dl Globulin 4.3 gm/dl Albumin/Globulin Ratio 0.7 (Macarena Adair ., PA-C) Assessment and Plan 26 y/o male with no significant PMH presenting with presumed infectious enteritis x 10 days, abnormal LFTs, acute kidney failure, and significant proteinuria/hematuria. He also had been having intermittent gross hematuria earlier in May. Gastroenteritis, ?secondary to viral vs infectious etiology/abnormal LFTs: - Admit to med/surg - C.diff, stool cultures, and Rotavirus antigen negative - Giardia and stool O/P- pending - Acute hepatitis panel- negative - IV Zofran PRN for nausea - IV Zantac q8 hrs - Advancing diet from full liquid to regular as tolerated - RUQ US- No gallstones or biliary ductal dilatation. Possible fatty infiltration of the liver. - Abdominal CT- 1. No renal, ureteral, or bladder calculi identified. No evidence of bowel obstruction. No evidence of free air. Normal appendix. No evidence of acute diverticulitis. Mild mesenteric lymphadenopathy, likely reactive. A 6 month follow-up study would seem prudent. Subtle nonspecific infiltration of the fat adjacent to the celiac origin. - GI consulted, appreciate recommendations -- MRCP 06/23- unremarkable -- Check CMP 1 week after discharge Acute renal failure w/ proteinuria and hematuria, ?secondary to dehydration vs ATN- RESOLVED: - Cr. 1.80 at admission--> now 1.10 - IVF @ 150 ml/hr - Encourage PO intake - Consulted nephrology, appreciate recommendations -- Moderate degree proteinuria, 1.5 gram in 24 hour urine. Rest of the workup still pending. -- Repeat 24 hour urine and renal panel in 2 weeks and follow up as an outpatient. Labs 2-3 days before his outpatient visit in 2-3 weeks Elevated lipase, likely secondary to ARF/dehydration: Lipase trending down Hyponatremia at 132 on admission, likely due to volume depletion- RESOLVED: - IVF - Follow BMP Hypokalemia at 3.0, secondary to diarrhea- RESOLVED: - Replaced w/ IV KCL 30 mEq supplement in ED- continue IVF + KCL - Mag- WNL - Follow PRP GI Prophylaxis: IV Zantac DVT Prophylaxis: Heparin SQ TID Code Status: LEVEL I, FULL Dispo: From home, lives w/ family- no discharge needs anticipated- hopeful discharge to home tomorrow (Macarena Adair ., PA-C) PA Physician Supervision Note: I interviewed and examined the patient. Discussed with Macarena MANDUJANO and agree with findings and plan as documented in the note. Any exceptions or clarifications are listed here: None Patient admitted after prolonged gastrointestinal illness with acute renal failure with concern for hematuria and proteinuria Initial infectious studies have been unremarkable patient continues to improve with hydration,diarrhea is lessening Vital signs are stable Abdomen is soft less tender Acute kidney injury from dehydration associated with diarrhea, but protein suggest a glomerular injury plan will follow up protein losing issue with Dr. Tristan as outpt, continue hydration until diarrhea slows Documented By: Inderjit Campbell (Inderjit Campbell M.D.)
[2017-06-24 16:50] VITALS: BP 112/74; PULSE 73; TEMP 36.6; O2SAT 99
[2017-06-24] MEDS ORDERED: NURSING VERBAL MED ORDER ONE (17:15)
[2017-06-24] MEDS ORDERED: HYDROCORTISONE HC 2.5% CRM 30GM TUBE EXT PRN (17:45)
[2017-06-24] MEDS ORDERED: NURSING VERBAL MED ORDER PRN (20:30)
[2017-06-24] MEDS ORDERED: LOPERAMIDE HCL 2 MG CAP PO PRN (20:45)
[2017-06-24 22:36] VITALS: BP 114/75; PULSE 69; TEMP 36.5; O2SAT 98
[2017-06-25] MEDS: NSS + 20MEQ KCL 1000ML 1,000 ML IV SCH ×2 (03:23→10:50)
[2017-06-25] MEDS: RANITIDINE IV 50 MG in DEXTROSE 5% 100ML 100 ML IV SCH ×2 (06:17→15:00)
[2017-06-25] MEDS: HEPARIN SOD 5000 UNIT/0.5 ML CARP SQ SCH ×2 (06:19→13:11)
[2017-06-25 07:40] VITALS: BP 108/75; PULSE 76; TEMP 36.5; O2SAT 98
[2017-06-25 08:01] LABS: HEMATOCRIT 42.8 % (42-52); MEAN CELL VOLUME 82.6 fL (80-100); MEAN CORPUSCULAR HEMOGLOBIN 27.2 pg (25-34); MEAN CORPUSCULAR HGB CONC 32.9 g/dl (32-36); MEAN PLATELET VOLUME 9.5 fL (7.4-10.4); PLATELET COUNT 276 K/uL (130-400); RED BLOOD COUNT 5.18 M/uL (4.7-6.1); WHITE BLOOD COUNT 7.77 K/uL (4.8-10.8)
[2017-06-25 08:30] LABS: BUN/CREATININE RATIO 8.7 (10-20); CALCIUM 8.4 mg/dl (8.5-10.1); CREATININE 0.91 mg/dl (0.60-1.40); POTASSIUM 3.8 mmol/L (3.5-5.1)
[2017-06-25 08:32] LABS: ALB/GLOB RATIO 0.7 (0.9-2)
[2017-06-25] MEDS ORDERED: PANT40TA PO (10:27)
[2017-06-25] MEDS ORDERED: ONDA4TAB65 PO (10:27)
[2017-06-25] MEDS ORDERED: IMD2X PO (10:27)
--- NOTE | 2017-06-25 10:43 | Discharge Summary ---
Discharge Summary Date of Service Jun 25, 2017. (Macarena Adair, MALICK) Discharge Summary Admission Date: Jun 22, 2017 at 12:29 Discharge Date: Jun 25, 2017 Discharge Disposition: Home Principal Diagnosis: Gastroenteritis Problems/Secondary Diagnoses: Gastroenteritis, ?secondary to viral vs infectious etiology abnormal LFTs Acute renal failure w/ proteinuria and hematuria, ?secondary to dehydration vs ATN Elevated lipase, likely secondary to ARF/dehydration: Lipase trending down Hyponatremia Hypokalemia diarrhea Procedures: CT SCAN OF THE ABDOMEN AND PELVIS WITHOUT CONTRAST CLINICAL HISTORY: Abdominal pain, nausea, vomiting, diarrhea. COMPARISON STUDY: 06/11/2017 TECHNIQUE: CT scan of the abdomen and pelvis was performed from the lung bases to the proximal femurs. Images are reviewed in the axial, sagittal, and coronal planes. IV contrast was not administered for this examination. A dose lowering technique was utilized adhering to the principles of ALARA. CT DOSE: 936.77 mGycm FINDINGS: Lower chest: The heart is normal in size and configuration, without pericardial effusion. The lung bases and pleural spaces are clear. Liver: The unenhanced liver is normal in size, contour, and attenuation. There is no intrahepatic biliary ductal dilatation. Gallbladder: Slightly hyperdense bile. No calculi are visualized Spleen: Normal in size and attenuation. Pancreas: Unremarkable. Adrenal glands: Unremarkable. Kidneys: No renal, ureteral, or bladder calculi are visualized. Bowel: There are no transition zones indicate bowel obstruction. There is no acute diverticulitis. The appendix appears normal. Peritoneum: There is no intraperitoneal free air or abdominal ascites. Vasculature: The abdominal aorta is normal in course and caliber. There is minimal infiltration of the fat adjacent the celiac origin. This finding is of questioned significance and remains similar to the prior study Adenopathy: There are mildly enlarged mesenteric lymph nodes, likely reactive. Pelvic viscera: The bladder, and pelvic viscera are unremarkable. Skeletal structures: No destructive osseous lesions are seen. IMPRESSION: 1. No renal, ureteral, or bladder calculi identified 2. No evidence of bowel obstruction. No evidence of free air 3. Normal appendix. No evidence of acute diverticulitis 4. Mild mesenteric lymphadenopathy, likely reactive. A 6 month follow-up study would seem prudent 5. Subtle nonspecific infiltration of the fat adjacent to the celiac origin. Electronically signed by: Carlos Martínez M.D. 06/22/2017 10:32 AM Dictated Date/Time: 06/22/2017 10:26 AM The status of this report is Signed. Draft = Not yet reviewed or approved by Radiologist. Signed = Reviewed and approved by Radiologist. ABDOMINAL ULTRASOUND, RIGHT UPPER QUADRANT HISTORY: Abnormal liver function tests. Abdominal pain. COMPARISON: CT of the abdomen and pelvis performed earlier today. FINDINGS: Liver morphology is normal. No hepatic lesions are identified. Hepatic echogenicity is slightly increased. There is no biliary ductal dilatation. The common bile duct measures 5 mm in caliber. No gallstones are identified. There is no gallbladder wall thickening. The pancreatic body is normal. The head and tail are partially obscured. There is no right hydronephrosis. IMPRESSION: 1. No gallstones or biliary ductal dilatation. 2. Possible fatty infiltration of the liver. Electronically signed by: Edgar Reed M.D. 06/22/2017 1:46 PM Dictated Date/Time: 06/22/2017 1:44 PM The status of this report is Signed. Draft = Not yet reviewed or approved by Radiologist. Signed = Reviewed and approved by Radiologist MRCP HISTORY: 26 years-old Male acute abdominal pain for 2 weeks with associated diarrhea, nausea and vomiting. COMPARISON: Right upper quadrant ultrasound 06/22/2017, CT abdomen and pelvis 06/22/2017. TECHNIQUE: Noncontrast MRCP was obtained with MIP reformats. FINDINGS: No intrahepatic or extrahepatic biliary ductal dilatation is seen. No filling defects, stricturing or obstructing masses are seen. There is no evidence of pancreatic divisum. The pancreatic duct appears normal. Gallbladder is within normal limits without evidence of gallstones. The previously described mildly enlarged nonspecific mesenteric lymph nodes seen on comparison CT are not as well seen on this study. IMPRESSION: Unremarkable MRCP without evidence of acute biliary abnormality or obstruction. The above report was generated using voice recognition software. It may contain grammatical, syntax or spelling errors. Electronically signed by: Damian Fisher M.D. 06/23/2017 11:54 PM Dictated Date/Time: 06/23/2017 11:49 PM The status of this report is Signed. Draft = Not yet reviewed or approved by Radiologist. Signed = Reviewed and approved by Radiologist. Consultations: Nephrology Gastroenterology (Macarena Adair, MALICK) Medication Reconciliation New Medications: Ondansetron Hcl (Zofran) 4 Mg Tab 4 MG PO Q8H PRN for prn for 10 Days, #30 TAB Ranitidine Hcl (Zantac) 150 Mg Tab 1 TAB PO BID for 14 Days, #28 TAB 5 Refills Loperamide Hcl (Imodium) 2 Mg Cap 4 MG PO Q8H PRN for DIARRHEA for 5 Days, #30 CAP Discharge Exam Review of Systems: Constitutional: No fever, No chills, No sweats, No weakness, No fatigue ENT: No hearing loss, No sore throat, No trouble swallowing Respiratory: No cough, No shortness of breath, No hemoptysis Cardiovascular: No chest pain, No edema, No palpitations Abdomen: + diarrhea, No pain, No nausea, No vomiting, No constipation, No GI bleeding Musculoskeletal: No joint pain, No muscle pain, No swelling, No calf pain Genitourinary - Male: No hematuria, No dysuria Neurologic: No weakness, No numbness/tingling Psychiatric: No depression symptoms, No anxiety Endocrine: No fatigue Hematologic / Lymphatic: No abnormal bleeding/bruising Integumentary: No rash, No itch, No new/changing skin lesions Physical Exam: General Appearance: WD/WN, no apparent distress Eyes: normal inspection, PERRL ENT: hearing grossly normal Neck: supple Respiratory/Chest: lungs clear, no respiratory distress, no accessory muscle use Cardiovascular: regular rate, rhythm Abdomen / GI: normal bowel sounds, non tender, soft Extremities: normal inspection, no calf tenderness, no pedal edema Neurologic/Psychiatric: alert, normal mood/affect, oriented x 3 Skin: normal color, warm/dry, no rash (Macarena Adair, PA-C) Hospital Course Admission H&P: 26 yo male with no significant PMH who presents with GI illness starting about 10 days ago. He states he ate at an [employer] restaurant in [place] and within hours of eating there he felt ill. Had stomach pain, bloating, and by the next morning had emesis. Diarrhea started that Thursday. He had 10-20 episodes of diarrhea each day initially, and now he is down to about 8-12 times/day. He had fevers for the first 4-5 days - subjective; never had it checked. Had chills as well. Appetite and liquid intake has been very poor for the last week. Stool is pure liquid. No blood. ?mucous. His 7mo daughter was hospitalized for 2 days at [facility] for similar symptoms. reports they were told it was a virus that caused the diarrhea and she improved without use of a course of antibiotics. They did NOT check stool cultures or do other stool testing. No recent travel. He drinks from a well at a local farm in [place]. He was seen at [facility] ER last week and was discharged home about 9 days ago. He was given supportive care and sent home. He took immodium and tums last week prn. He took cipro for 3 days (prescribed by [facility]). Physical Exam Vital Signs Date Time Temp Pulse Resp B/P (MAP) Pulse Ox O2 Delivery O2 Flow Rate FiO2 06/22/17 09:55 82 20 110/66 98 Room Air 06/22/17 07:59 36.4 92 16 117/85 95 Room Air General Appearance: no apparent distress, + obese Head: normocephalic, atraumatic Eyes: PERRL ENT: TMs normal, pharynx normal (except MM dry) Neck: supple, no adenopathy, thyroid normal, no JVD Respiratory/Chest: lungs clear, no respiratory distress, no accessory muscle use Cardiovascular: regular rate, rhythm, no gallop, no murmur, normal peripheral pulses Abdomen/GI: normal bowel sounds, soft, no organomegaly, + tenderness ( epigastric area with deep palpation) Back: normal inspection, no muscle spasm Extremities/Musculoskelatal: no pedal edema, + pertinent finding (slightly cool extremities) Neurologic/Psych: no motor/sensory deficits, alert, normal mood/affect, normal reflexes, oriented x 3 Skin: no rash Lymphatic: no adenopathy (cervical ) Hospital Course: Gastroenteritis, ?secondary to viral vs infectious etiology/abnormal LFTs: - Admit to med/surg - C.diff, stool cultures, and Rotavirus antigen negative - Giardia and stool O/P- pending - Acute hepatitis panel- negative - IV Zofran PRN for nausea - IV Zantac q8 hrs - Tolerating full diet - RUQ US- No gallstones or biliary ductal dilatation. Possible fatty infiltration of the liver. - Abdominal CT- 1. No renal, ureteral, or bladder calculi identified. No evidence of bowel obstruction. No evidence of free air. Normal appendix. No evidence of acute diverticulitis. Mild mesenteric lymphadenopathy, likely reactive. A 6 month follow-up study would seem prudent. Subtle nonspecific infiltration of the fat adjacent to the celiac origin. - GI consulted, appreciate recommendations -- MRCP 06/23- unremarkable -- CMP in 1 week after discharge Diarrhea- IMPROVING: Imodium PRN Acute renal failure w/ proteinuria and hematuria, ?secondary to dehydration vs ATN- RESOLVED: - Cr. 1.80 at admission--> now 1.10 - IVF @ 150 ml/hr - Encourage PO intake - Consulted nephrology, appreciate recommendations -- Moderate degree proteinuria, 1.5 gram in 24 hour urine. Rest of the workup still pending. -- Repeat 24 hour urine and renal panel in 2 weeks and follow up as an outpatient. Labs 2-3 days before his outpatient visit in 2-3 weeks Elevated lipase, likely secondary to ARF/dehydration: Lipase trending down Hyponatremia at 132 on admission, likely due to volume depletion- RESOLVED: - IVF - Follow BMP Hypokalemia at 3.0, secondary to diarrhea- RESOLVED: - Replaced w/ IV KCL 30 mEq supplement in ED- continue IVF + KCL - Mag- WNL - Follow PRP GI Prophylaxis: IV Zantac DVT Prophylaxis: Heparin SQ TID Code Status: LEVEL I, FULL Dispo: Discharge to home Total Time Spent: Greater than 30 minutes This includes examination of the patient, discharge planning, medication reconciliation, and communication with other providers. (Macarena Adair ., PA-C) PA Physician Supervision Note: I interviewed and examined the patient. Discussed with Macarena Adair PAC and agree with findings and plan as documented in the note. Any exceptions or clarifications are listed here: None Patient admitted after prolonged gastrointestinal illness with acute renal failure with concern for hematuria and proteinuria Initial infectious studies have been negative and diarrhea has subsided, concern for proteinuria is confirmed by24 hour urine Vital signs are stable Abdomen is soft much less tender Acute kidney injury from dehydration associated with diarrhea, but proteinuria suggests a glomerular injury plan will follow up protein losing issue with Dr. Tristan as outpt, encourage po fluid intake to promote a dilute urine Documented By: Inderjit Campbell (Inderjit Campbell M.D.) Discharge Instructions Please refer to the electronic Patient Visit Report (Discharge Instructions) for additional information. (Macarena Adair ., PA-C) Follow-Up Please follow-up with your PCP within 5-7 days Please follow-up with Nephrology in 2-3 weeks Please follow-up/keep all of your subspecialty appointments (Macarena Adair, ELENA-C) Additional Copies To Nita Santillan M.D.
[2017-06-25] MEDS ORDERED: RANI150T3 PO (10:46)
--- NOTE | 2017-06-25 10:46 | Discharge Instructions ---
Discharge Instructions Date of Service Jun 25, 2017. Admission Reason for Admission: Transaminitis, Nausea, Vomiting & Diarrhea Discharge Discharge Diagnosis / Problem: Gastroenteritis Discharge Goals Goal(s): Decrease discomfort, Improve function, Improve disease control, Improve nutritional status, Learn about illness, Diagnostic testing, Therapeutic intervention, Prevent Disease Progression Activity Recommendations Activity Limitations: resume your previous activity . Instructions / Follow-Up Instructions / Follow-Up You were admitted to the hospital because of ongoing nausea, vomiting, diarrhea , and abdominal pain. Your symptoms are likely due to a viral cause due to unremarkable workup at this point. However, laboratory results are still pending. You will need continued follow-up outpatient. At admission, you liver enzymes were elevated. These enzymes have continued to improve over the course of your stay. You were seen by GI and workup was unremarkable. You will need to get blood work in 1 week prior to your PCP appointment on July 01 to continue and monitor these levels. Additionally at admission, your kidney function was declined. Through IV and oral hydration, your kidney function has returned back to baseline. Dr. Varma (fleshing machine operator), would like to follow-up with you on July 10. Prior to this appointment, you will need to get blood work completed. CONTINUE TO DRINK PLENTY OF FLUIDS! enough to keep urinating and keep your urine light yellow/clear in color. You may take Zantac 150 mg by mouth twice per day x2 weeks to help settle your stomach. This can be bought [id number]. For your diarrhea: You may take Imodium. This can be bought [id number]. Please follow instructions on package. FOLLOW-UPS: Please follow-up with your PCP on July 01 Please follow-up with Nephrology on July 10 Please follow-up/keep all of your subspecialty appointments Current Hospital Diet Patient's current hospital diet: Regular Diet Discharge Diet Recommended Diet: Regular Diet Procedures Procedures Performed: MRCP, gallbladder ultrasound, abdominal/pelvic CT Pending Studies Studies pending at discharge: yes List of pending studies: Giardia, stool O/P, nephrology workup Laboratory Results Hemoglobin A1c Test 06/11/17 11:22 Range/Units Estimated Average Glucose 108 mg/dl Hemoglobin A1c 5.4 4.5-5.6 % Lipid Panel Test 06/11/17 11:22 Range/Units Triglycerides Level 292 H 0-150 mg/dl Cholesterol Level 169 0-200 mg/dl HDL Cholesterol 38 mg/dl Cholesterol/HDL Ratio 4.4 LDL Cholesterol, Calculated 73 mg/dl Medical Emergencies . Who to Call and When: Medical Emergencies: If at any time you feel your situation is an emergency, please call 911 immediately. . Non-Emergent Contact Non-Emergency issues call your: Primary Care Provider Call Non-Emergent contact if: you have a fever, your pain is not controlled, your pain is worsening, your pain is unusual for you, your pain is concerning you, you have any medication questions . . "Provider Documentation" section prepared by Macarena Adair. . VTE Core Measure Inpt VTE Proph given/why not?: Unfractionated heparin SQ
[2017-06-25 13:16] VITALS: BP 108/75; PULSE 76; TEMP 36.5; O2SAT 98
[2017-06-28 22:32] LABS: MYELOPEROXIDASE AB <1.0 AI (<1.0)
[2017-07-01 14:30] LABS: O&P GIARDIA AG NOT DETECTED (NOT DETECTED); O&P SOURCE OTHER-STOOL
== END 2017-06-25 15:00 | disposition home or self-care (01) | DRG 391 ==
LOC: C.EDB 07:59 → C.MS2W 12:29 → ENRESERV 13:03
PROVIDERS: ADMIT Internal Medicine; ATTEND Internal Medicine
DX: A08.4 Viral intestinal infection, unspecified (principal); N17.0 Acute kidney failure with tubular necrosis; N00.9 Acute nephritic syndrome with unspecified morphologic changes; E87.1 Hypo-osmolality and hyponatremia; R94.5 Abnormal results of liver function studies; K29.70 Gastritis, unspecified, without bleeding; E87.6 Hypokalemia; E66.9 Obesity, unspecified; Z51.81 Encounter for therapeutic drug level monitoring; Z87.891 Personal history of nicotine dependence; Z68.31 Body mass index [BMI] 31.0-31.9, adult; Z84.1 Family history of disorders of kidney and ureter; Z83.79 Family history of other diseases of the digestive system

== ENCOUNTER → 2017-06-30 | Outpatient (CLI) | payer OTHER ==
[~2017-06-30] MED LIST changes: -PANT40TA PO
[2017-06-30 10:32] LABS: ALT/SGPT 124 U/L (12-78); BLOOD UREA NITROGEN 10 mg/dl (7-18); BUN/CREATININE RATIO 10.5 (10-20); CALCIUM 8.9 mg/dl (8.5-10.1); CARBON DIOXIDE 31 mmol/L (21-32); CHLORIDE 103 mmol/L (98-107); CREATININE 0.95 mg/dl (0.60-1.40); GLUCOSE 73 mg/dl (70-99); POTASSIUM 3.8 mmol/L (3.5-5.1); SODIUM 139 mmol/L (136-145)
[2017-06-30 10:35] LABS: ALB/GLOB RATIO 0.7 (0.9-2); ALKALINE PHOSPHATASE 100 U/L (45-117); AST/SGOT 36 U/L (15-37)
--- NOTE | 2017-07-24 11:27 | CODING QUERY NO DIAGNOSIS ---
TREATMENT RENDERED WITHOUT A DIAGNOSIS To promote full compliance with coding requirements relating to patient care, physician participation is requested in all cases of innersole fitter uncertainty. Please assist us with providing a diagnosis/symptom for the test(s) below: A diagnosis/symptom was not documented on your Order. A valid diagnosis/symptom is required to bill all insurances. Please remember that we are unable to code a diagnosis of rule out, probable, possible, questionable, or suspected. Tests that require a diagnosis: * CMP DIAGNOSIS: Provider Signature: Date: Thank you Geena Pereyra [employer] Once completed, please kindly fax back to [phone] For questions please call [phone]
== END | disposition home or self-care (01) ==
LOC: C.LAB 09:17
PROVIDERS: ATTEND Physician Assistant
DX: R79.89 Other specified abnormal findings of blood chemistry (principal)

== ENCOUNTER → 2017-07-08 | Outpatient (CLI) | payer OTHER ==
[~2017-07-08] MED LIST changes: -ONDA4TAB65 PO
[2017-07-08 10:54] LABS: PATIENT HEIGHT 172.7 cm
[2017-07-08 12:17] LABS: URINE APPEARANCE CLEAR (CLEAR); URINE BILIRUBIN NEG (NEG); URINE COLOR YELLOW; URINE EPITHELIAL CELL AUTO 0-5 /lpf (0-5); URINE NITRITE NEG (NEG); UROBILINOGEN NEG (NEG)
[2017-07-08 12:22] LABS: MANUAL MICROSCOPIC REQUIRED? NO; REVIEW REQ? NO
[2017-07-08 12:28] LABS: ALT/SGPT 48 U/L (12-78); AST/SGOT 25 U/L (15-37); BLOOD UREA NITROGEN 11 mg/dl (7-18); BUN/CREATININE RATIO 10.2 (10-20); CALCIUM 9.1 mg/dl (8.5-10.1); CARBON DIOXIDE 28 mmol/L (21-32); CHLORIDE 105 mmol/L (98-107); GLUCOSE 101 mg/dl (70-99); POTASSIUM 4.1 mmol/L (3.5-5.1); SODIUM 138 mmol/L (136-145)
[2017-07-08 12:29] LABS: ALKALINE PHOSPHATASE 93 U/L (45-117); PHOSPHORUS 2.6 mg/dl (2.5-4.9)
[2017-07-08 13:02] LABS: URINE PROTIEN/CREAT RATIO 0.4 (0-0.2); URINE TOTAL PROTEIN 53.5 mg/dl (0-11.9)
[2017-07-09 08:41] LABS: URINE TOTAL PROTEIN 26.2 mg/dl (0-11.9)
[2017-07-09 08:45] LABS: CREATININE 1.1 mg/dl (0.6-1.4)
== END | disposition home or self-care (01) ==
LOC: C.LAB 10:12
PROVIDERS: ATTEND Internal Medicine Nephrology
DX: R80.9 Proteinuria, unspecified (principal); R74.8 Abnormal levels of other serum enzymes; R19.7 Diarrhea, unspecified

== ENCOUNTER → 2017-07-30 | Outpatient (CLI) | payer OTHER ==
[~2017-07-30] VITALS: Ht 174 cm; Wt 101.1 kg
[2017-07-30 14:32] VITALS: BP 126/87; PULSE 90; Ht 174 cm; Wt 101.1 kg
== END | disposition home or self-care (01) ==
LOC: C.NEUR 13:43
PROVIDERS: ATTEND Internal Medicine Pulmonary Disease
DX: G47.33 Obstructive sleep apnea (adult) (pediatric) (principal)

== ENCOUNTER → 2017-08-19 | Outpatient (CLI) | payer OTHER ==
--- NOTE | 2017-08-20 06:22 | PAP/PSG TECHNICIAN REPORT ---
[facility] [employer] Polysomnogram Report Study name: None Report date: 08/20/2017 Study date: 08/19/2017 Referring Physician: Dr. David Harper DO Name: SARITHA MCCORMACK Interpreting Physician: David Harper D.O. Date of : 1990 Net Solutions Architect: NICOLE Qiu. Sex: Male Age: 27 StudyType: PSG Weight: 222 lbs Height: 27 years, Height 5' 8" Neck Circum: 18.5 inches BMI: 33.75 Medications: No medications Patient History 26 yr. old male here tonight for a possible split night sleep study in room 8. Patient complains of witnessed apneas. Patient [place] Sleepiness Scale Score is 10/24. Parameters Monitored NPSG: E1-M2, E2-M1, Fp1-M2, Fp2-M1, F3-M2, F4-M2, F4-M1, C3-M2, C4-M2, C4-M1, O1-M2, O2-M2, O2-M1, T3-M2, T4-M1, P3-M2, P4-M1, CHIN1, CHIN2, HR, EKG, Legs, PFLOW, SNOR, FLOW, CFLOW, Tidal Volume, THOR, ABDO, SpO2, PLTH, CPRESS, ETCO2 Wave, ETCO2, pH Sleep Architecture Sleep Stages Time at Lights Off 10:00:05 PM STAGES Time (min.) TST (%) Time at Lights On 5:29:05 AM Wake 30.0 -- Total Recording Time (TRT) 450.00 min. N1 37.0 9 Total Sleep Period (TSP) 443.5 min. N2 220.5 53 Total Sleep Time (TST) 419.0min. N3 71.0 17 Awake Time 31.0 min. REM 90.5 22 Wake after Sleep Onset 24.5 min. Sleep Efficiency (SE) 93 % Sleep Onset Latency (NELLIE) 5.5 min. Number of Stage 1 Shifts None Awakenings 21 Stage Changes 98 Number of REM periods 12 REM 90.5 22 REM Latency 67.5 min. NREM 328.5 78 Body Position Analysis Supine Right Left Side Prone Vertical Total Sleep Time (min.) 291.7 5.2 134.9 140.05 0.0 1.5 Total Sleep Time (%) 67% 1% 32% 33 0% N/A% Total Sleep Time REM (min.) 42.0 0.0 48.5 None 0.0 0.0 Total Sleep Time NREM (min.) 236.9 5.2 86.4 None 0.0 0.0 Intermittent Wake (min.) 12.8 7.7 8.0 None 0.0 1.5 Total Sleep Period (%) 65% None None None None None Arousals Myoclonus (PLM) * Events Count Index Events Count Index Spontaneous 7 1 Events Awake (PLMW) 53 106.0 Respiratory 8 1.3 Events Asleep w/ Arousal (PLMA) 10 1.4 PLM 9 1 Events Asleep w/o Arousal (PLMS) 36 5.2 Snoring 12 2 Total Asleep 46 6.6 Total 35 5 Total 99 13 Respiratory Analysis * CA OA MA CH H RERA Total Count 1 11 0 0 45 2 57 Index 0.1 1.6 0.0 0 6.4 0 8.4 Mean Duration 10.1 18.3 0.0 0.00 21.4 24.9 20.8 Longest Duration 10.1 30.1 0.0 0.00 0.0 29.1 51.5 Respiratory Event Summary Total Supine ~Supine Right Left Prone REM NREM Apneas Count 12 11 1 0 1 N/A 9 3 Index 1.7 2 0 0.0 0.4 N/A 6 1 Hypopneas (4% Desat) Count 45 44 1 0 1 N/A 19 26 Index 6.4 9.5 0 0.0 0.4 N/A 12.6 4.7 Apneas & All Hypopneas Count 57 55 2 0 2 N/A 28 29 Index 8.2 12 1 0 1 N/A 18.6 5.3 Respiratory Events (Coding Manager+All Hyp+RERA) Count 57 57 2 0 2 N/A 28 29 Index 8.4 12 1 0.0 0.9 N/A 18.6 5.7 Respiratory Related Arousal Count 8 57 0 0 0 N/A 4 5 Index 1.3 2 0 0 0 N/A 3 1 Snoring Analysis Supine Right Left Prone REM NREM Total Snore duration 94.2 min Snores count 2,587 5 872 N/A 395 3,069 3,464 Snore mean duration 1.6 Sec Snores index 556 58 388 N/A 261.9 560.5 496.0 TST with snoring (%) 22.5% Desaturation Event Summary: Minimum %SpO2 Event Count Mean/Min/Max Duration(sec.) Desaturation Index % Time In Bed > 90 58 22.1 / 6.0 / 52.3 7.9 99.3 86 - 90 1 8.8 / 8.8 / 8.8 21.1 0.6 81 - 85 0 N/A 0.0 0.0 76 - 80 0 N/A 0.0 0.0 71 - 75 0 N/A 0.0 0.0 66 - 70 0 N/A 0.0 0.0 61 - 65 0 N/A 0.0 0.0 56 - 60 0 N/A 0.0 0.0 51 - 55 0 N/A 0.0 0.0 < 50 0 N/A 0.0 0.0 Total REM NREM Awake <50% 0.0 min. 0.0 min. 0.0 min. 0.0 min. 51 - 60% 0.0 min. 0.0 min. 0.0 min. 0.0 min. 61 - 70% 0.0 min. 0.0 min. 0.0 min. 0.0 min. 71 - 80% 0.0 min. 0.0 min. 0.0 min. 0.0 min. 81 - 90% 2.9 min. 2.1 min. 0.5 min. 0.4 min. 91 - 100% 442.9 min. 88.4 min. 325.5 min. 29.1 min. Average 95 96 95 96 Minimum SpO2 84 84 87 86 Desaturation Event Index 7.8 17.9 5.1 12.0 # Desat. Events below 89% 10 9 1 0 Time(%) with Saturation below 89% 0.3 0.2 0.1 0.1 Time(min.) with Saturation below 89% 1.4 0.9 0.3 0.2 Time (mins) REM (mins) NREM (mins) % of TST SpO2 Below 90% 14 12 N2 0.5 SpO2 Below 88% 4 0 0 0 Heart Rate Analysis Min (bpm) Max (bpm) Average (bpm) Awake 43 101 77 NREM 53 100 66 REM 57 93 67 Overall 53 100 67 Supplemental O2 Values Minimum O2 level: None Value Start Time End Time Net [employer] Architect Comments Mr. Mccormack slept in the right, left, and supine positions. No cardiac arrhythmia or PLMs noted. No bruxism noted. Snoring was noted and scored as a 4 on a scale of 0 through 5. (0=no snoring, 5=snoring loud enough to be heard through a closed door or down the [address] way) Mr. Mccormack did not wake to use the restroom during the night. Mr. Mccormack stated, that was a normal night. The final report will be interpreted and signed by a sleep physician. The completed physician report will then be placed in the patient medical record. Therapy (cm H2O) 0 TIB (min.) 449.0 TST (min.) 419.0 Sleep Onset (min.) 5.5 REM Onset From Sleep (min.) 67.5 Sleep Efficiency % 93 Wakefulness (%) 7 Wakefulness (min.) 31.0 NREM 1 (%) 9 NREM 1 (min.) 37.0 NREM 2 (%) 53 NREM 2 (min.) 220.5 NREM 3 (%) 17 NREM 3 (min.) 71.0 REM (%) 22 REM (min.) 90.5 # Arousals 35 Arousal Index 5 # Snore 3,464 Snore Index 496.0 AHI 8.2 AHI Supine 12 AHI Non-Supine 1 NREM AHI 5.3 REM AHI 18.6 RDI 8.4 # Obstructive Apnea 11 # Central Apnea 1 # Mixed Apnea 0 # Hypopneas 45 RERAs 2 Total Respiratory Events 62 Time Below SpO2 89% (min.) 1.2 Mean NREM SpO2 (%) 95 Mean REM SpO2 (%) 96 Mean Sleep SpO2 (%) 95 Min NREM SpO2 (%) 87 Min REM SpO2 (%) 84 Position Supine (min.) 291.7 Position Non-supine (min.) 140.1 LM Index Sleep 6.6 LM Index NREM 6.2 LM Index REM 8.0 Mean Heart Rate (bpm) 67 Min Heart Rate (bpm) 53
== END | disposition home or self-care (01) ==
LOC: C.NEUR 21:00
PROVIDERS: ATTEND Internal Medicine Pulmonary Disease
DX: G47.33 Obstructive sleep apnea (adult) (pediatric) (principal)

== ENCOUNTER → 2017-10-09 | Outpatient (CLI) | payer OTHER ==
[2017-10-09 10:05] LABS: PATIENT HEIGHT 172.7 cm
[2017-10-09 10:54] LABS: BLOOD UREA NITROGEN 13 mg/dl (7-18); BUN/CREATININE RATIO 13.2 (10-20); CALCIUM 8.9 mg/dl (8.5-10.1); CARBON DIOXIDE 28 mmol/L (21-32); CHLORIDE 105 mmol/L (98-107); CREATININE 0.96 mg/dl (0.60-1.40); GLUCOSE 98 mg/dl (70-99); POTASSIUM 4.1 mmol/L (3.5-5.1); SODIUM 139 mmol/L (136-145)
[2017-10-09 11:02] LABS: CREATININE, URINE 90.9 mg/dl; URINE TOTAL PROTEIN 67.8 mg/dl (0-11.9)
[2017-10-09 11:21] LABS: URINE TOTAL PROTEIN CALC 1559.4 mg/24 hr (0-149.1)
[2017-10-09 11:22] LABS: CREATININE 0.99 mg/dl (0.6-1.4)
== END | disposition home or self-care (01) ==
LOC: C.LAB 09:31
PROVIDERS: ATTEND Internal Medicine Nephrology
DX: R80.9 Proteinuria, unspecified (principal)